=== PATIENT | male | born 1940 | race Caucasian/White ===

== ENCOUNTER → 2016-04-24 | Outpatient (CLI) | payer OTHER ==
[~2016-04-24] MED LIST: DOXA2TAB PO; HYDC25 PO; LISI20TA3 PO; MULT-506 PO; OXYC-57 PO; PROSTATE MED PO; SIMV20TA2 PO
[2016-04-24 09:37] LABS: BASO % 0.3 %; BASO ABS # 0.02 K/uL (0-0.2); COMPLETE YES; EOS % 4.1 %; HEMATOCRIT 41.7 % (42-52); IG% 0.2 %; LYMPH % 20.8 %; LYMPH ABS # 1.23 K/uL (1.2-3.4); MEAN CELL VOLUME 93.5 fL (80-100); MEAN CORPUSCULAR HEMOGLOBIN 31.6 pg (25-34); MEAN CORPUSCULAR HGB CONC 33.8 g/dl (32-36); MEAN PLATELET VOLUME 9.6 fL (7.4-10.4); MONO % 6.6 %; PLATELET COUNT 245 K/uL (130-400); RED BLOOD COUNT 4.46 M/uL (4.7-6.1)
[2016-04-24 10:21] LABS: BLOOD UREA NITROGEN 19 mg/dl (7-18); BUN/CREATININE RATIO 15.6 (10-20); CALCIUM 9.8 mg/dl (8.5-10.1); CARBON DIOXIDE 27 mmol/L (21-32); CHLORIDE 107 mmol/L (98-107); GLUCOSE 102 mg/dl (70-99); POTASSIUM 4.6 mmol/L (3.5-5.1); SODIUM 141 mmol/L (136-145)
[2016-04-24 10:26] LABS: CHOLESTEROL 161 mg/dl (0-200); CHOLESTEROL/HDL RATIO 3.8; FERRITIN 66.3 ng/ml (8.0-388.0); HDL CHOLESTEROL 42 mg/dl; LDL CHOLESTEROL CALCULATED 85 mg/dl; TRIGLYCERIDES 172 mg/dl (0-150); VERY LOW DENSITY LIPOPROT CALC 34 mg/dl
[2016-04-24 10:30] LABS: ESTIMATED AVERAGE GLUCOSE 123 mg/dl; HA1C FLAG Normal (Normal)
== END | disposition home or self-care (01) ==
LOC: C.LAB 08:55
PROVIDERS: ATTEND Internal Medicine Geriatric Medicine
DX: I10 Essential (primary) hypertension (principal); E78.5 Hyperlipidemia, unspecified; R73.9 Hyperglycemia, unspecified; Z86.39 Personal history of other endocrine, nutritional and metabolic disease; D64.9 Anemia, unspecified; C61 Malignant neoplasm of prostate

== ENCOUNTER → 2016-07-03 | Outpatient (CLI) | payer OTHER ==
[~2016-07-03] MED LIST changes: +DIPH30CA PO; +PSYL48.59 PO; +TAMS0.4C38 PO
--- NOTE | 2016-07-03 14:24 | DIAGNOSTIC IMAGING REPORT ---
BONE SCAN WHOLE BODY CLINICAL HISTORY: Prostate cancer. COMPARISON STUDY: Whole-body bone scan February 23, 2010. TECHNIQUE: 27.2 mCi of technetium 99m MDP was injected IV at 10:30 AM on July 03, 2016. Whole body imaging was performed in the anterior and posterior projections 3 hours following injection. FINDINGS: Expected soft tissue and uptake is present. There has been interval development of a small focus of marked radiotracer uptake within the left inferior pubic ramus. Uptake within the shoulders and sternoclavicular joints is degenerative. No additional suspicious foci are identified. IMPRESSION: Small focus of marked radiotracer uptake within the left inferior pubic ramus which is highly suggestive of skeletal metastatic disease given the clinical history. Electronically signed by: Dann Cruz M.D. 07/03/2016 2:22 PM Dictated Date/Time: 07/03/2016 2:16 PM
== END | disposition home or self-care (01) ==
LOC: C.NUCL 09:45
PROVIDERS: ATTEND Urology
DX: C61 Malignant neoplasm of prostate (principal)

== ENCOUNTER → 2016-07-13 | Outpatient (CLI) | payer OTHER ==
[2016-07-10 12:25] LABS: BLOOD UREA NITROGEN 22 mg/dl (7-18); BUN/CREATININE RATIO 20.2 (10-20)
[~2016-07-13] MED LIST changes: +GADAVIST IV PRN
--- NOTE | 2016-07-13 10:47 | DIAGNOSTIC IMAGING REPORT ---
MRI THE PELVIS WITHOUT A WITH GADOLINIUM CLINICAL HISTORY: Prostate carcinoma. Abnormal bone scan. COMPARISON STUDY: Nuclear medicine bone scan dated 07/03/2016 FINDINGS: The patient was imaged before and after the administration of 5.5 cc of intravenous Gadavist. Imaging was performed in sagittal coronal and axial planes. There are no areas of pathologic marrow replacement. The prostate is heterogeneous and mildly enlarged. There is colonic diverticulosis. There is no evidence of pathologic adenopathy. IMPRESSION: 1. No MRI evidence of pelvic skeletal metastasis 2. The etiology of the previously described abnormal bone scan is not known with certainty. The activity may have represented urinary contamination. Electronically signed by: Iftikhar Greer M.D. 07/13/2016 10:46 AM Dictated Date/Time: 07/13/2016 10:41 AM
== END | disposition home or self-care (01) ==
LOC: C.MRI 09:14
PROVIDERS: ATTEND Urology
DX: C61 Malignant neoplasm of prostate (principal); R93.8 Abnormal findings on diagnostic imaging of other specified body structures

== ENCOUNTER → 2016-09-01 | Outpatient (CLI) | payer OTHER ==
[~2016-09-01] MED LIST changes: -GADAVIST IV PRN; -HYDC25 PO; -OXYC-57 PO; -PROSTATE MED PO
== END | disposition home or self-care (01) ==
LOC: C.PATHSPEC 13:38
PROVIDERS: ATTEND Urology
DX: C61 Malignant neoplasm of prostate (principal)

== ENCOUNTER → 2016-09-20 | Outpatient (CLI) | payer OTHER ==
[~2016-09-20] MED LIST changes: -PSYL48.59 PO; -TAMS0.4C38 PO
[2016-09-20 13:10] VITALS: BP 102/49; PULSE 62; TEMP 36.7; O2SAT 96
--- NOTE | 2016-09-20 15:36 | Radiation Oncology Follow-Up ---
Radiation Oncology Follow-Up Date of Visit Sep 20, 2016. (Niels Bass M.D.) Radiation Completion Date no radiation had consult Jul 27 2016 (Niels Bass M.D.) Diagnosis (1) Cancer of prostate w/low recurrence risk (T1-2a, [place]<7 & PSA<10) Status: Acute Onset Date: 08/15/2009 Location: right lobe of the prostate Histology Subtype: adenocarcinoma Stage: ll Permanent Comment: Rising PSA, pretreatment PSA 5.39 Status post ultrasound-guided biopsies 02/14/2010 Adenocarcinoma the prostate [place] 3+3 Active surveillance Rising PSA to 14.400 Repeat biopsy 09/01/2016 Adenocarcinoma [place] 3+4 Last Edited By: Cesilia Escoto on Sep 20, 2016 16:20 (Cesilia Escoto, SOFÍA) History of Present Illness Mr. Metz is a soon-to-be 76-year-old male in August of this year who presented at age 69 with a increase in his prostate-specific antigen from 3.23 on 2009 to 5.39 on 11/19/2009. Because of this increase in prostate-specific antigen the patient was seen by Dr. Corcoran who discussed the option of ultrasound-guided biopsies. The patient ultimately agreed and on 02/14/2010 patient underwent the biopsies. Dr. Corcoran took 20 biopsies though the patient remembers 23. Of these biopsies however only 2 were positive for [place] grade 3+3 involving a small amount of disease. Case: [id number]. Based on this information it would appear that the patient had a very low risk prostate cancer. At age 77 was very appropriate to proceed with active surveillance. The patient did continue to get follow-up prostate-specific antigens though he did not get follow-up biopsies. His prostate-specific antigen very gradually increased and on 04/07/2014 prostate-specific antigen was 8.33. 10/08/1999 1510.7. 04/07/2015 9.67, 10/06/1999 1610.1 and 04/24/1999 1714.4. With this ultimate rising prostate-specific antigen the patient returned to see Dr. Rivera. On digital rectal exam Dr. Rivera felt his gland was 30 g in size and that the right lobe was larger and firmer than the left lobe. He discussed with the patient the recommendation of repeating biopsies. He also obtained a bone scan. This was performed on 07/03/2016. This showed a small focus of marked radiotracer uptake within the left inferior pubic ramus which is felt to be highly suggestive of skeletal metastatic disease given the clinical history. An MRI to rule this out was performed on July 13. This showed no MRI evidence of pelvic skeletal metastasis. The etiology of the abnormal bone scan was not certain but would be explained by urinary contamination. However there was ultimately no evidence of metastatic disease. (Cesilia Escoto PA-C) Interim History As recommended the patient underwent a repeat biopsy 09/01/2016. This revealed adenocarcinoma at the right base. This is a 3+4. 2 cores positive. These were 50 and 80% involved. 30% of the core was grade 4. The right mid showed adenocarcinoma 3+4. 2 cores positive. 5 and 45%. The percentage of 4 was 40% . With the new findings on repeat biopsy the patient was referred back to our office to discuss radiation therapy. He is doing well from urinary standpoint. His AUA score was 2. He completed expanded prostate cancer index composite for clinical practice and gave a score of 0 of 12 and urinary incontinence symptoms. He gave a score of 0 of 12 and urinary irritation symptoms. He gave a score of 0 of 12 in bowel symptoms. He gave a score of one of 12 and sexual symptoms. He gave a score of 0 of 12 in hormonal vitality symptoms. His total was 1 of 60. (Cesilia Escoto PA-C) Allergies Coded Allergies: No Known Allergies (Verified Allergy, NONE, 08/22/08) Home Medications Scheduled Doxazosin Mesylate (Cardura), 1 TAB PO HS Lisinopril (Prinivil), 20 MG PO DAILY Simvastatin (Zocor), 20 MG PO QPM Review of Systems Gastrointestinal: Symptoms: WNL Oral: Symptoms: No Problems Respiratory: Symptoms: WNL Urinary: Symptoms: WNL Comments: PSA 14.4 Skin: Symptoms: No Problems (Niels Bass M.D.) Physical Exam Vital Signs Date Time Temp Pulse Resp B/P (MAP) Pulse Ox O2 Delivery O2 Flow Rate FiO2 09/20/16 13:10 36.7 62 18 102/49 96 Pain: Patient Pain Scale: 0 - 10 Initial Pain Intensity: 0.0 (Derdel, Niels, M.D.) Fatigue: None General Appearance: no apparent distress Eyes: normal inspection, EOMI ENT: normal ENT inspection, hearing grossly normal Neck: no adenopathy, thyroid normal Respiratory/Chest: lungs clear, no respiratory distress, no accessory muscle use Cardiovascular: regular rate, rhythm, no gallop, no murmur Abdomen: non tender, soft, no organomegaly Extremities: no pedal edema Neurologic/Psychiatric: no motor/sensory deficits, alert, normal mood/affect Skin: warm/dry (Cesilia Escoto PA-C) Laboratory Studies Test 07/10/16 09:57 Blood Urea Nitrogen 22 mg/dl (7-18) Creatinine 1.10 mg/dl (0.60-1.40) Estimated GFR () 75.2 Estimated GFR (Non- 64.9 BUN/Creatinine Ratio 20.2 (10-20) (Niels Bass M.D.) Additional Studies [facility] SURGICAL PATHOLOGY REPORT Name ÓSCAR METZ Case: [id number] SURGICAL PATHOLOGY REPORT Page 2 of 3 [place] [address] Al Cummins M.D. [employer] PATHOLOGY REPORT SURGICAL PATHOLOGY REPORT Page 1 of 1 Name ÓSCAR METZ Age/Sex 75/M Location: [facility] MR# [id number] : 1940 /[facility] Physician: Davie Rivera M.D. Case: [id number] Received 09/01/16 Specimen Date 09/01/16 CLINICAL HISTORY C61 14.40 on 04/24/16 GROSS DESCRIPTION A. LEFT BASE X2 The specimen is received in a container labeled as left base with patient name Óscar Metz. The specimen consists of two cylindrical fragments of pink soft tissue which measure 1.6 and 2 cm in length and average 0.1 cm in diameter. The specimen is entirely submitted in a single cassette as A for levels. B. RIGHT BASE X2 The specimen is received in a container labeled as right base with patient name Óscar Metz. The specimen consists of two cylindrical fragments of pink soft tissue which measure 1.8 and 2 cm in length and average 0.1 cm in diameter. The specimen is entirely submitted in a single cassette as B for levels. C. LEFT MID X2 The specimen is received in a container labeled as left mid with patient name Óscar Metz. The specimen consists of four cylindrical fragments of pink soft tissue which range from 0.2 to 2 cm in length and average 0.1 cm in diameter. The specimen is entirely submitted in a single cassette as C for levels. D. RIGHT MID X2 The specimen is received in a container labeled as right mid with patient name Óscar Metz. The specimen consists of three cylindrical fragments of pink soft tissue which range from 0.6 to 1.8 cm in length and average 0.1 cm in diameter. The specimen is entirely submitted in a single cassette as D for levels. E. LEFT APEX X2 The specimen is received in a container labeled as left apex with patient name Óscar Metz. The specimen consists of two cylindrical fragments of pink soft tissue, each measuring 1.8 cm in length and averaging 0.1 cm in diameter. The specimen is entirely submitted in a single cassette as E for levels. F. RIGHT APEX X2 The specimen is received in a container labeled as right apex with patient name Óscar Metz. The specimen consists of three cylindrical fragments of pink soft tissue which range from 0.4 to 1.7 cm in length and average 0.1 cm in diameter. The specimen is entirely submitted in a single cassette as F for levels. SH/pi FINAL DIAGNOSIS A. PROSTATE, LEFT BASE, NEEDLE BIOPSIES: BENIGN PROSTATIC TISSUE. B. PROSTATE, RIGHT BASE, NEEDLE BIOPSIES: 1. PROSTATIC ADENOCARCINOMA, GRADE GROUP 2, THANG GRADE 7 (3 + 4) WITH GRADE 4 REPRESENTING 30% OF TUMOR. 2. TUMOR NOTED WITHIN TWO OF TWO CORES, MEASURING 8 AND 11 MM (50 AND 80% CORE LENGTH RESPECTIVELY). 3. NO PERINEURAL OR LYMPH-VASCULAR INVASION IDENTIFIED. C. PROSTATE, LEFT MID, NEEDLE BIOPSIES: BENIGN PROSTATIC TISSUE. D. PROSTATE, RIGHT MID, NEEDLE BIOPSIES: 1. PROSTATIC ADENOCARCINOMA, GRADE GROUP 2, THANG GRADE 7 (3 + 4) WITH GRADE 4 REPRESENTING 40% OF TUMOR. 2. TUMOR NOTED WITHIN TWO OF TWO CORES, MEASURING 1 AND 6 MM (5 AND 45% CORE LENGTH RESPECTIVELY). 3. NO PERINEURAL OR LYMPH-VASCULAR INVASION IDENTIFIED. E. PROSTATE, LEFT APEX, NEEDLE BIOPSIES: BENIGN PROSTATIC TISSUE. F. PROSTATE, RIGHT APEX, NEEDLE BIOPSIES: BENIGN PROSTATIC TISSUE. COMMENT: The case has been seen in intradepartmental consultation. (Niels Bass M.D.) Assessment & Plan Mr. Metz is a 76-year-old male who was initially diagnosed with a very low risk prostate cancer following biopsies on 02/14/2010 and presenting prostate- specific antigen of 5.39. At that time patient chose to proceed with active surveillance at the age of 69. The patient was followed with serial prostate- specific antigens. In August 2013 prostate-specific antigen had gone up slightly to 5.93. March 2014 prostate-specific antigen increased to 8.33. 10/07/2014 prostate-specific antigen was 10.7. March 2015 prostate-specific antigen was 9.67. 10/06/2015 prostate-specific antigen was 10.1 and on 04/24/2016 prostate- specific antigen had increased to 14.4. At that time narinder Rivera asked if I would see the patient again to discuss treatment options. I told the patient that it would be best to have additional information if we were to make appropriate decisions and discuss appropriate treatment options. I therefore suggested that the patient strongly consider a repeat biopsy as did Dr. Rivera. The patient ultimately agreed and on 2016 underwent ultrasound-guided biopsies. The patient's digital rectal exam at that time showed a firm right mid lateral gland. Patient went on to have 12 core biopsies taken. The biopsies from the left base, left mid, left apex and right apex were benign. 2 of 2 biopsies from the right base were positive for prostatic adenocarcinoma [place] grade 3+4. He [place] pattern 4 represented 30 % of the tumor and the tumor represented 50% and 80% of the core tissue samples respectfully. No perineural or lymphovascular invasion was identified. 2 of 2 biopsies in the right mid gland were positive for adenocarcinoma Th[place] grade 3 +4 with Thang pattern 4 represented 40% of the tumor volume and the 2 core biopsies involving 5% and 45% of the core tissue samples respectively. No perineural or lymphovascular invasion was seen. Case: [id number]. I reviewed with the patient his pathology findings. I told him that he now has what is considered an intermediate risk disease. I reviewed the NCCN Guidelines with him. Estimated survival as noted previously for a 76-year-old gentleman is on average 9 and three-quarter years. However given this patient' s excellent health he very well could live an additional 15 years. I told him that recommendations for low risk disease or to offer active surveillance only if you're going to live less than 10 years. For intermediate risk disease they generally recommend consideration of treatment if survival is over 8-10 years. Given his likely survival I thought it was reasonable to discuss treatment options with this patient. I met with the patient and his to discuss treatment options. I reviewed with him the Audra table data. This shows probability of organ confined disease of 32% and probability of extraprostatic extension of 50%. Probability of seminal vesicle involvement is 14% but lymph node involvement is only 40%. I told him that given the need to treat outside of the gland that we could treat with a prostate seed implant as boost followed by a course of external radiation. The patient indicated that he was predisposed against consideration of a prostate seed implant. I therefore told him that an alternative would be to treat him with a hypo-fractionated course of radiation following placement of gold fiducial markers seeds and SpaceOAR. I told him this this would consist of 28 fractions delivered over 5-1/2 weeks. I reviewed with him the potential risks and side effects including a discussion of both acute as well as chronic side effects. This included a discussion of potential increase and secondary malignancies of the bladder and rectum. The patient is scheduled to return to see Dr. Rivera on October 18 at 9:50 AM. I told him that we could easily wait until after his meeting with Dr. Rivera to give the patient time to think about treatment options area told him that it is an option to continue with close active surveillance if the patient wishes to avoid treatment of any kind. The patient indicated that at this time is strongly considering the treatment with IMRT and IGRT utilizing hypo- fractionation as discussed with him. No consent form was obtained at this time. We will await for his review with Dr. Rivera and will proceed according to his wishes. Thank you for allowing us to participate in the care of this patient. This chart was completed in part utilizing The [employer] Voice Recognition software. Attempts were made to minimize the grammatical errors, random word insertions, pronoun errors and incomplete sentences. Any formal questions or concerns about the content, text or information contained within the body of this dictation should be directly addressed to the provider for clarification. Omar Bass MD Department of Radiation Oncology [facility] Rani Andersen [facility] (Niels Bass M.D.) Total Time In Follow-Up I spent 20 minutes in discussion of treatment options with this patient and 10 minutes reviewing his chart in preparation of this document. DONNY (Niels Bass M.D.) I spent 20 was speaking to the patient performing examination. I spent 15 minutes reviewing information and completing this note. OLEGARIO (Cesilia Escoto PA-C) Copy To Davie Rivera M.D.; Tashi Ferrell M.D.
== END | disposition home or self-care (01) ==
LOC: C.ONC 12:46
PROVIDERS: ATTEND Physician Assistant Medical
DX: Z08 Encounter for follow-up examination after completed treatment for malignant neoplasm (principal); Z92.3 Personal history of irradiation; Z85.46 Personal history of malignant neoplasm of prostate

== ENCOUNTER → 2016-11-14 | Outpatient (CLI) | payer OTHER ==
--- NOTE | 2016-11-14 10:38 | DIAGNOSTIC IMAGING REPORT ---
MRI OF THE PELVIS WITHOUT IV CONTRAST CLINICAL HISTORY: Prostate cancer. Brachytherapy seed implantation. Space oar study. COMPARISON STUDY: MRI of the pelvis dated 07/13/2016. TECHNIQUE: MRI of the pelvis is performed utilizing T1 and T2-weighted sequences in the axial and sagittal planes. IV contrast was not administered for this examination. Note that this does not constitute a dedicated prostate MRI. FINDINGS: The prostate gland is enlarged and heterogeneous, measuring 4.5 cm in transverse diameter. There is median lobe hypertrophy. Space oar material has been placed between the prostate and the rectum. There is approximately 1.5 cm of separation between the prostate and the rectum. The bladder wall is thickened and trabeculated suggesting chronic outlet obstruction. Advanced diverticulosis is noted in the sigmoid colon. There is no evidence of acute diverticulitis. No pelvic sidewall or inguinal lymphadenopathy is seen. The bony pelvis appears intact as visualized. Marrow signal intensity is heterogeneous. No marrow replacement process is identified. There is no free fluid in the pelvis. IMPRESSION: 1. Space oar material has been placed between the prostate and the rectum with approximately 1.5 cm of separation. 2. The prostate gland is enlarged and heterogeneous and there is evidence of chronic bladder outlet obstruction. 3. Advanced sigmoid diverticulosis. Dictated: 11/14/2016 10:29 AM Transcribed: 11/14/2016 10:37 AM Chele Electronically signed by: Fidencio Fang M.D. 11/14/2016 10:47 AM Dictated Date/Time: 11/14/2016 10:29 AM
== END | disposition home or self-care (01) ==
LOC: C.MRI 09:49
PROVIDERS: ATTEND Physician Assistant Medical
DX: C61 Malignant neoplasm of prostate (principal); K57.30 Diverticulosis of large intestine without perforation or abscess without bleeding

== ENCOUNTER → 2016-11-24 | Outpatient (CLI) | payer OTHER ==
[~2016-11-24] MED LIST changes: +TAMS0.4C38 PO
[2016-11-24 09:47] LABS: BLOOD UREA NITROGEN 17 mg/dl (7-18); BUN/CREATININE RATIO 13.9 (10-20); CALCIUM 10.5 mg/dl (8.5-10.1); CARBON DIOXIDE 29 mmol/L (21-32); CHLORIDE 106 mmol/L (98-107); GLUCOSE 111 mg/dl (70-99); POTASSIUM 4.7 mmol/L (3.5-5.1); SODIUM 138 mmol/L (136-145)
== END | disposition home or self-care (01) ==
LOC: C.LAB 08:16
PROVIDERS: ATTEND Internal Medicine Geriatric Medicine
DX: R73.9 Hyperglycemia, unspecified (principal); C61 Malignant neoplasm of prostate; D64.9 Anemia, unspecified

== ENCOUNTER → 2016-12-18 | Outpatient (CLI) | payer OTHER ==
[~2016-12-18] MED LIST changes: -TAMS0.4C38 PO
[2016-12-18 12:47] LABS: ALT/SGPT 30 U/L (12-78); BLOOD UREA NITROGEN 15 mg/dl (7-18); BUN/CREATININE RATIO 13.3 (10-20); CALCIUM 9.5 mg/dl (8.5-10.1); CARBON DIOXIDE 27 mmol/L (21-32); CHLORIDE 104 mmol/L (98-107); GLUCOSE 97 mg/dl (70-99); POTASSIUM 4.3 mmol/L (3.5-5.1); SODIUM 136 mmol/L (136-145)
[2016-12-18 12:58] LABS: ALB/GLOB RATIO 1.1 (0.9-2); ALKALINE PHOSPHATASE 100 U/L (45-117); AST/SGOT 25 U/L (15-37)
== END | disposition home or self-care (01) ==
LOC: C.LAB 11:03
PROVIDERS: ATTEND Internal Medicine Geriatric Medicine
DX: E83.52 Hypercalcemia (principal); I10 Essential (primary) hypertension; R73.9 Hyperglycemia, unspecified

== ENCOUNTER → 2017-01-18 | Outpatient (CLI) | payer OTHER ==
[~2017-01-18] MED LIST changes: +PSYL48.59 PO; +TAMS0.4C38 PO
== END | disposition home or self-care (01) ==
LOC: C.LABSPEC 17:12
PROVIDERS: ATTEND Urology
DX: N39.0 Urinary tract infection, site not specified (principal)

== ENCOUNTER → 2017-02-09 | Outpatient (CLI) | payer OTHER ==
[~2017-02-09] MED LIST changes: +CEPH500C PO
[2017-02-09 08:29] VITALS: BP 137/66; PULSE 73; TEMP 36.3; O2SAT 98
--- NOTE | 2017-02-09 09:24 | Radiation Oncology Follow-Up ---
Radiation Oncology Follow-Up Date of Visit Feb 09, 2017. Reason For Visit One-month follow-up and cancer survivorship care plan Radiation Completion Date 01/08/17 Diagnosis (1) Cancer of prostate w/low recurrence risk (T1-2a, Erin<7 & PSA<10) Status: Resolved Onset Date: 08/15/2009 Location: right lobe of the prostate Histology Subtype: adenocarcinoma Stage: ll Permanent Comment: Rising PSA, pretreatment PSA 5.39 Status post ultrasound-guided biopsies 02/14/2010 Adenocarcinoma the prostate Elbert 3+3 Active surveillance Rising PSA to 14.400 Repeat biopsy 09/01/2016 Adenocarcinoma Erin 3+4 No hormone suppression required Status post placement of gold fiducial markers and Space OAR 10/31/2016 Status post completion of radiation therapy 01/08/2017 utilizing VMAT hypo- fractionation. He received 7000 cGy Last Edited By: Cesilia Escoto on Jan 13:36 History of Present Illness Mr. Metz presented at age 69 with a increase in his prostate specific antigen from 3.23 on 10/03/2009 to 5.39 on 11/19/2009. Because of this increase in prostate-specific antigen the patient was seen by Dr. Corcoran who discussed the option of ultrasound-guided biopsies. The patient ultimately agreed and on 02/14/2010 patient underwent the biopsies. Dr. Corcoran took 20 biopsies though the patient remembers 23. Of these biopsies however only 2 were positive for Elbert grade 3+3 involving a small amount of disease. Case: [id number]. Based on this information it would appear that the patient had a very low risk prostate cancer. At age 77 was very appropriate to proceed with active surveillance. The patient did continue to get follow-up prostate-specific antigens though he did not get follow-up biopsies. His prostatespecific antigen very gradually increased and on 04/07/2014 prostate-specific antigen was 8.33. 10/08/1999 1510.7. 9.67, 10/06/1999 1610.1 and 04/24/1999 1714.4. With this ultimate rising prostate-specific antigen the patient returned to see Dr. Rivera. On digital rectal exam Dr. Rivera felt his gland was 30 g in size and that the right lobe was larger and firmer than the left lobe. He discussed with the patient the recommendation of repeating biopsies. He also obtained a bone scan. This was performed on 07/03/2016. This showed a small focus of marked radiotracer uptake within the left inferior pubic ramus which is felt to be highly suggestive of skeletal metastatic disease given the clinical history. An MRI to rule this out was performed on July 13. This showed no MRI evidence of pelvic skeletal metastasis. The etiology of the abnormal bone scan was not certain but would be explained by urinary contamination. However there was ultimately no evidence of metastatic disease. Dr. Rivera asked if we would see his patient to discuss the treatment options with the patient. All options were reviewed with the patient. His ultimate decision was to have radiation therapy. Decision was to treat with a hypo-fractionation. He returned to our office and had placement of gold fiducial markers and Space OAR. He completed radiation therapy 01/08/2017. He received 7000 cGy Utilizing VMAT. Interim History Shortly after completing his radiation therapy he developed acute urinary retention. He was in the vicinity of Dr. Rivera's office and stopped in. A catheter was placed. The amount of urine that was removed is not known to the patient but he describes a large amount. There going to leave the catheter out that he had incontinence. Decision was to leave the catheter in place. This stayed in for 5 days. He return to Dr. Rivera and the catheter was removed. He did not have any further difficulty further episodes of retention after removal of the catheter. While on treatment he was started on Flomax. At the end of treatment he felt he was doing well and he stopped the medication on his own. He is not on any medication to help with urination. He occasionally has a feeling of urgency. He is otherwise doing very well. He given AUA score of 5. He completed and expanded prostate cancer index composite for clinical practice and gave a score of 0 of 12 urinary incontinence symptoms. He gave a score 0 of 12 and urinary irritation symptoms. He gave a score of 0 of 12 and bowel symptoms. He gave a score of 2 of 12 in sexual symptoms. He gave a score 0 12 and hormonal vitality symptoms. His total was 2 of 60. Allergies Coded Allergies: No Known Allergies (Verified Allergy, NONE, 08/22/08) Home Medications Scheduled Doxazosin Mesylate (Cardura), 1 TAB PO HS Lisinopril (Prinivil), 20 MG PO DAILY Multivitamin (Multivitamin), 1 TAB PO DAILY Psyllium (Metamucil), 1 TSP PO DAILY Simvastatin (Zocor), 20 MG PO QPM Tamsulosin Hcl (Flomax), 1 CAP PO DAILY Scheduled PRN Diphenhydramine Hcl (Allergy Medication), 1 CAP PO DAILY PRN for allergy flare Review of Systems Gastrointestinal: Symptoms: WNL Oral: Symptoms: No Problems Respiratory: Symptoms: WNL Urinary: Symptoms: WNL Comments: a couple weeks ago I had a catheter put in for 5 days unable to void, af Skin: Symptoms: No Problems Physical Exam Vital Signs Date Time Temp Pulse Resp B/P (MAP) Pulse Ox O2 Delivery O2 Flow Rate FiO2 02/09/17 08:29 36.3 73 20 137/66 98 Fatigue: None General Appearance: no apparent distress Eyes: normal inspection, EOMI ENT: normal ENT inspection, hearing grossly normal Respiratory/Chest: lungs clear, no respiratory distress, no accessory muscle use Cardiovascular: regular rate, rhythm, no gallop, no murmur Abdomen: non tender, soft, no organomegaly Extremities: no pedal edema Neurologic/Psychiatric: no motor/sensory deficits, alert, normal mood/affect Skin: warm/dry Pain Management Pain Location: None Patient Preferred Pain Scale: 0 - 10 Pain Rating (0-10): 0 Pain Management Plan The patient is not having any pain and therefore requires no pain management. Laboratory Studies Test 11/24/16 08:21 12/11/16 10:10 12/18/16 11:16 02/09/17 08:58 Sodium Level 138 mmol/L (136-145) 136 mmol/L (136-145) Potassium Level 4.7 mmol/L (3.5-5.1) 4.3 mmol/L (3.5-5.1) Chloride Level 106 mmol/L (98-107) 104 mmol/L (98-107) Carbon Dioxide Level 29 mmol/L (21-32) 27 mmol/L (21-32) Anion Gap 3.0 mmol/L (3-11) 5.0 mmol/L (3-11) Blood Urea Nitrogen 17 mg/dl (7-18) 15 mg/dl (7-18) Creatinine 1.20 mg/dl (0.60-1.40) 1.10 mg/dl (0.60-1.40) Estimated GFR () 67.2 74.7 Estimated GFR (Non- 58.0 64.4 BUN/Creatinine Ratio 13.9 (10-20) 13.3 (10-20) Random Glucose 111 mg/dl (70-99) 97 mg/dl (70-99) Calcium Level 10.5 mg/dl (8.5-10.1) 9.5 mg/dl (8.5-10.1) Prostate Specific Antigen 15.900 ng/ml (0.000-4.000) Pending Urine Color YELLOW Urine Appearance CLEAR (CLEAR) Urine pH 8.0 (4.5-7.5) Urine Specific [place] 1.009 (1.000-1.030) Urine Protein NEG (NEG) Urine Glucose (UA) NEG (NEG) Urine Ketones NEG (NEG) Urine Occult Blood NEG (NEG) Urine Nitrite NEG (NEG) Urine Bilirubin NEG (NEG) Urine Urobilinogen NEG (NEG) Urine Leukocyte Esterase NEG (NEG) Total Bilirubin 0.4 mg/dl (0.2-1) Aspartate Amino Transferase (AST) 25 U/L (15-37) Alanine Aminotransferase (ALT) 30 U/L (12-78) Alkaline Phosphatase 100 U/L (45-117) Total Protein 7.0 gm/dl (6.4-8.2) Albumin 3.7 gm/dl (3.4-5.0) Globulin 3.3 gm/dl (2.5-4.0) Albumin/Globulin Ratio 1.1 (0.9-2) Thyroid Stimulating Hormone (TSH) 3.150 uIu/ml (0.300-4.500) Parathyroid Hormone (Intact) 72.9 pg/mL (11.1-79.5) Assessment & Plan Plan: The patient will be notified as to results of his PSA. He'll continue regular follow-up with Dr. Rivera and Dr. Ferrell. Should he develop difficulty with urination the Flomax could be reinstituted. He feels he is doing quite well and is not in need of any medicines to help with urination. Today we completed a cancer survivorship care plan. A copy of the document was given a the patient. He was given a survivorship booklet. We asked him to return to our office in 6 months. He'll be following up with Dr. Rivera and having a recheck PSA prior to that visit. Total Time In Follow-Up I spent 20 minutes speaking to the patient performing examination. I spent 20 minutes reviewing information, preparing the survivorship document, and completing this note. Copy To Davie Rivera M.D.; Tashi Ferrell M.D.
== END | disposition home or self-care (01) ==
LOC: C.ONC 08:14
PROVIDERS: ATTEND Physician Assistant Medical
DX: Z08 Encounter for follow-up examination after completed treatment for malignant neoplasm (principal); Z92.3 Personal history of irradiation; Z85.46 Personal history of malignant neoplasm of prostate

== ENCOUNTER → 2017-05-23 | Outpatient (CLI) | payer OTHER ==
[~2017-05-23] MED LIST changes: -CEPH500C PO; -DIPH30CA PO; -MULT-506 PO; -PSYL48.59 PO; -TAMS0.4C38 PO
== END | disposition home or self-care (01) ==
LOC: C.LAB 08:45
PROVIDERS: ATTEND Urology
DX: C61 Malignant neoplasm of prostate (principal)

== ENCOUNTER 2024-02-13 09:23 | Inpatient (IN) ==
[2024-02-13 10:18] LABS: Basophils # (auto) 0.02 K/uL (0.00-0.20); Basophils % (auto) 0.4 %; Eosinophils # (auto) 0.13 K/uL (0.00-0.50); Eosinophils % (auto) 2.3 %; Hematocrit (blood only) 40.5 % (42.0-52.0); Immature Granulocytes # (auto) 0.04 K/uL (0.01-0.20); Immature Granulocytes % (auto) 0.7 %; Lymphocytes # (auto) 0.83 K/uL (1.20-3.40); Lymphocytes % (auto) 14.9 %; Mean Corpuscular Hgb Conc 32.1 g/dL (32.0-36.0); Mean Corpuscular Volume 93.3 fL (80.0-100.0); Mean Platelet Volume 9.4 fL (9.4-12.4); Monocytes # (auto) 0.68 K/uL (0.11-0.59); Monocytes % (auto) 12.2 %; Neutrophils # (auto) 3.87 K/uL (1.40-6.50); Neutrophils % (auto) 69.5 %; Platelet Count 253 K/uL (130-400); RDW Standard Deviation 48.4 fL (36.4-46.3); Red Blood Count 4.34 M/uL (4.70-6.10); White Blood Count 5.57 K/ul (4.8-10.8)
--- NOTE | 2024-02-13 10:29 | XRay Report ---
XR chest 1V portable CLINICAL HISTORY: weakness COMPARISON STUDY: No previous studies for comparison. FINDINGS: Lung volumes are normal. Lungs are clear. There is no pneumothorax or pleural effusion. . M ild cardiomegaly is unchanged. Mediastinal contours are normal. There is no evidence for pulmonary ed gladis. Clustered calcifications within the right midlung are unchanged. IMPRESSION: No acute cardiopulmonary findings. No change in appearance of the chest. ACT 112: Negative or not required by law. Electronically signed by: Dann Cruz M.D. 02/13/2024 10:28 AM
[2024-02-13 10:40] LABS: Albumin Globulin Ratio 1.3 (0.9-2); Albumin Level 4.2 gm/dl (3.4-5.0); BUN Creatinine Ratio 20.3 (10-20); Bilirubin,Total 0.4 mg/dl (0.2-1.0); Calcium 10.1 mg/dl (8.6-10.3); Creatinine Clr Calc Pharmacy 29.1 ml/min; Globulin 3.2 gm/dl (2.5-4.0); Magnesium 2.1 mg/dl (1.7-2.4); Potassium 4.1 mmol/L (3.5-5.1); Total Protein 7.4 gm/dl (6.0-8.3)
[2024-02-13 10:44] LABS: Troponin I High Sensitivity 12.9 pg/ml (0-20)
--- NOTE | 2024-02-13 11:02 | Emergency Department Note ---
Impression & Plan COVID-19, COVID, Weakness ED Provider Note NAME: ÓSCAR LUIS AGE: 83 SEX: M : 1940 ARRIVES VIA: Ambulance INFORMANT: Patient, ED PROVIDER(S): Dameon Goode MD CHIEF COMPLAINT: Weakness, confusion HPI: This is an 83-year-old male with history of dementia presenting for weakness. Patient lives with his and is currently companied by his daughter and granddaughter. Patient has been more confused recently, sleeping on amount as per family. He has had a slight fever at home. Otherwise they note that he is very weak, unable to stand on his own. He fell out of bed previously and was assisted back into bed by his . Could barely lift him to the bed. They are concerned that he may need placement. ROS: See above HPI for pertinent positives & negatives. A total of 10 systems reviewed and were otherwise negative. PAST MEDICAL HISTORY: See Below PAST SURGICAL HISTORY: See Below FAMILY HISTORY: See Below SOCIAL HISTORY: See Below HOME MEDICATIONS: See Below ALLERGIES: See Below VITALS: See Below PHYSICAL EXAMINATION: General: resting comfortably in no acute distress Head: Normocephalic and atraumatic Eyes: Normal inspection, extraocular muscles intact Ear, nose, throat: Normal external exam Neck: Normal range of motion Respiratory: lungs clear to auscultation bilaterally Cardiovascular: Regular rate/rhythm, no murmur GI: soft, nontender, no guarding or rebound Extremities: nontender, moves all extremities Neuro: The patient awake and alert, appropriately conversive, no focal deficits, symmetric faces Skin: Warm, dry, and intact MEDICAL DECISION MAKING: This is an 83-year-old male presenting for weakness. Will do screening workup to look for UTI, pneumonia, URI, anemia. Patient will likely require admission/placement at this time based on family's inability to normal care for him at this time with his increasing needs. -Bloodwork is reviewed showing no significant leukocytosis, anemia, electrolyte or creatinine abnormality. -UA currently negative for UTI -Patient is positive for COVID-19 at this time, likely explains current symptoms -Chest Xray independently interpreted by me showing no pneumothorax, focal opacity, or pleural effusions. Differential diagnosis: COVID-19, UTI, upper resp infection, pneumonia, anemia Independent History obtained from: Daughter, Diagnostics interpreted by me: ECG: ECG independently interpreted by me with normal sinus rhythm, rate of 67, normal axis, normal GA, normal QRS, normal QTc, no ST segment elevations consistent with STEMI criteria Cardiac Monitoring: An order was placed for continuous cardiac monitoring. The monitor shows a rate of [70 with sinus rhythm. Past Med/Surg History Problem List (Updated 02/13/24 @ 18:02 by Dameon Goode MD) Weakness (Acute) COVID (Acute) COVID-19 (Acute) Fatigue COVID-19 Ambulatory dysfunction Hypertension (Chronic) Dementia Dementia with behavioral disturbance Pre-diabetes CKD (chronic kidney disease) stage 3, GFR 30-59 ml/min Subclinical hypothyroidism B12 deficiency Cancer of prostate w/low recurrence risk (T1-2a, Shawnee<7 & PSA<10) (08/15/09) "Rising PSA, pretreatment PSA 5.39 Status post ultrasound-guided biopsies 02/14/2010 Adenocarcinoma the prostate Shawnee 3+3 Active surveillance Rising PSA to 14.400 Repeat biopsy 09/01/2016 Adenocarcinoma Erin 3+4 No hormone suppression required Status post placement of gold fiducial markers and Space OAR 10/31/2016 Status post completion of radiation therapy 01/08/2017 utilizing VMAT hypo- fractionation. He received 7000 cGy" On 09/20/16 16:20 Cesilia Escoto wrote "Rising PSA, pretreatment PSA 5.39 Status post ultrasound-guided biopsies 02/14/2010 Adenocarcinoma the prostate Erin 3+3 Active surveillance Rising PSA to 14.400 Repeat biopsy 09/01/2016 Adenocarcinoma Erin 3+4 " On 07/27/16 09:55 Omar Bass wrote "He presented in 2009 with a prostate-specific antigen of 5.39. He underwent ultrasound-guided biopsies. 20 biopsies were taken with only 2 positive for Shawnee grade 3+3 with minute amounts. Patient therefore had a very low risk prostate cancer. At age 69 his decision was made to proceed with active surveillance. The patient's prostate-specific antigen has been gradually increasing up to 10 and his most recent prostate-specific antigen was 14.4." Urinary retention with incomplete bladder emptying (Acute) Medical History (Updated 02/13/24 @ 18:02 by Dameon Goode MD) History of tobacco use disorder Skin lesion of right ear Seizure-like activity Adrenal nodule Anemia Dyslipidemia Hypercalcemia Cardiac murmur Surgical History History of appendectomy Family History Father Hypertension Cardiac disorder Myocardial infarction Denies family history of Ovarian cancer Prostate cancer Breast cancer Lung cancer Colorectal cancer Cancer Social History Smoking Status: Former smoker Tobacco Type: Cigarettes Age Started Using Tobacco: 15; Age Quit Using Tobacco: 82; packs per day: 0.25; Second Hand Exposure: No; Do You Dip or Chew Tobacco: No; Tobacco Cessation Education Requested by Patient: No Hx Alcohol Use: No Hx Substance Use: No Preferred Language: Croatian Communication Ability: Effective Visual Impairment: Diminished Hearing Ability: Normal Circus Rider Required: No Beliefs That Will Affect Care: None marital status: Current Living Situation: Spouse current occupational status: retired How many Children do You have: 3 Other Information That Helps Us Care for You: No Feels Safe at Home: Yes Safety Concerns: Feels Safe At This Time Childhood Exposure to Second-Hand Smoke: Yes Diet: regular caffeine: Yes Dental Care, Regularly: No Physical Activity Frequency: 3-4 Times per Week Physical Activity Frequency Comment: walk Seatbelt Use: always Sunscreen Use: No Allergies Allergies Allergy/AdvReac Type Severity Reaction Status Date / Time No Known Drug Allergies Allergy Verified 10/10/23 11:10 Home Meds Home Medications Medication Instructions Recorded Confirmed multivitamin 1 tab PO QAM 01/05/19 02/13/24 cyanocobalamin (vitamin B-12) 2,500 mcg PO Q OTHER DAY 08/31/22 02/13/24 2,500 mcg tablet amlodipine 5 mg tablet 5 mg PO QAM 02/13/24 02/13/24 donepezil 10 mg tablet 10 mg PO PM 02/13/24 02/13/24 lisinopril 40 mg tablet 40 mg PO QAM hypertension 02/13/24 02/13/24 paroxetine HCl 20 mg tablet 20 mg PO QAM 02/13/24 02/13/24 Previous Rx's Medication Instructions Recorded alprazolam 0.5 mg tablet (Xanax) 0.5 mg PO DAILY PRN anxiety #60 03/08/23 tabs cholecalciferol (vitamin D3) 1,250 50,000 unit PO .qweekly #14 tabs 03/08/23 mcg (50,000 unit) tablet memantine 10 mg tablet 10 mg PO BID 90 days #180 tabs 09/03/23 Results & Data (ED) Vital Signs Vital Signs - 24 hr 02/13/24 09:28 02/13/24 09:28 02/13/24 09:28 Temperature 37.1 C 37.1 C Temperature Source Oral Oral Pulse Rate 68 Pulse Rate [Apical] 66 Pulse Rhythm Regular Pulse Rhythm [Apical] Regular Pulse Strength Normal Pulse Strength [Apical] Normal Respiratory Rate 16 16 Respiratory Effort / Characteristics Non-Labored Non-Labored Respiratory Depth Normal Normal Respiratory Pattern Regular Regular Blood Pressure 139/78 Blood Pressure [Right Arm] 139/78 Blood Pressure Mean 98 Blood Pressure Mean [Right Arm] 98 Blood Pressure Position Lying Blood Pressure Position [Right Arm] Lying Pulse Oximetry 94 92 Oxygen Delivery Method Room Air Room Air Room Air Sepsis Recent Fever Within 48 Hours No Sepsis New/Unexplained Change in Mental Status N/A Sepsis Action Taken by Nursing No Action Required 02/13/24 09:34 02/13/24 10:03 02/13/24 10:28 Temperature Temperature Source Pulse Rate 66 66 Pulse Rate [Apical] 68 Pulse Rhythm Regular Pulse Rhythm [Apical] Regular Pulse Strength Pulse Strength [Apical] Normal Respiratory Rate 16 16 Respiratory Effort / Characteristics Non-Labored Respiratory Depth Normal Respiratory Pattern Regular Blood Pressure Blood Pressure [Right Arm] 152/73 H Blood Pressure Mean Blood Pressure Mean [Right Arm] 99 Blood Pressure Position Blood Pressure Position [Right Arm] Lying Pulse Oximetry 92 92 Oxygen Delivery Method Room Air Room Air Sepsis Recent Fever Within 48 Hours Sepsis New/Unexplained Change in Mental Status Sepsis Action Taken by Nursing 02/13/24 11:49 02/13/24 13:23 02/13/24 13:43 Temperature Temperature Source Pulse Rate 69 Pulse Rate [Apical] 66 71 Pulse Rhythm Pulse Rhythm [Apical] Regular Regular Pulse Strength Pulse Strength [Apical] Normal Normal Respiratory Rate 16 16 Respiratory Effort / Characteristics Non-Labored Non-Labored Respiratory Depth Normal Normal Respiratory Pattern Regular Regular Blood Pressure Blood Pressure [Right Arm] 154/91 H 149/90 H Blood Pressure Mean Blood Pressure Mean [Right Arm] 112 109 Blood Pressure Position Blood Pressure Position [Right Arm] Lying Lying Pulse Oximetry 98 93 Oxygen Delivery Method Room Air Room Air Sepsis Recent Fever Within 48 Hours Sepsis New/Unexplained Change in Mental Status Sepsis Action Taken by Nursing 02/13/24 14:23 02/13/24 14:24 02/13/24 16:00 Temperature Temperature Source Pulse Rate 70 Pulse Rate [Apical] 68 72 Pulse Rhythm Pulse Rhythm [Apical] Regular Pulse Strength Pulse Strength [Apical] Normal Respiratory Rate 16 20 26 H Respiratory Effort / Characteristics Non-Labored Non-Labored Respiratory Depth Normal Normal Respiratory Pattern Regular Blood Pressure 158/97 H Blood Pressure [Right Arm] 170/127 H Blood Pressure Mean 124 Blood Pressure Mean [Right Arm] 141 Blood Pressure Position Blood Pressure Position [Right Arm] Lying Lying Pulse Oximetry 98 92 94 Oxygen Delivery Method Room Air Room Air Sepsis Recent Fever Within 48 Hours Sepsis New/Unexplained Change in Mental Status Sepsis Action Taken by Nursing Laboratory Data 02/13/24 09:58 02/13/24 09:58 Lab Results 02/13/24 02/13/24 02/13/24 Range/Units 09:58 11:42 Unknown WBC 5.57 (4.8-10.8) K/ul RBC 4.34 L (4.70-6.10) M/uL Hgb 13.0 L (14.0-18.0) g/dl Hct 40.5 L (42.0-52.0) % MCV 93.3 (80.0-100.0) fL MCH 30.0 (25.0-34.0) pg MCHC 32.1 (32.0-36.0) g/dL RDW Std Deviation 48.4 H (36.4-46.3) fL RDW Coeff of Radha 14.0 (11.5-14.5) % Plt Count 253 (130-400) K/uL MPV 9.4 (9.4-12.4) fL Immature Gran % (Auto) 0.7 % Neut % (Auto) 69.5 % Lymph % (Auto) 14.9 % [place] % (Auto) 12.2 % Eos % (Auto) 2.3 % Baso % (Auto) 0.4 % Neut # (Auto) 3.87 (1.40-6.50) K/uL Lymph # (Auto) 0.83 L (1.20-3.40) K/uL [place] # (Auto) 0.68 H (0.11-0.59) K/uL Eos # (Auto) 0.13 (0.00-0.50) K/uL Baso # (Auto) 0.02 (0.00-0.20) K/uL Immature Gran # (Auto) 0.04 (0.01-0.20) K/uL Sodium 135 L (136-145) mmol/L Potassium 4.1 (3.5-5.1) mmol/L Chloride 102 (98-107) mmol/L Carbon Dioxide 26 (21-32) mmol/L Anion Gap 7 (3-11) BUN 32 H (6-23) mg/dl Creatinine 1.58 H (0.6-1.4) mg/dl Est Cr Clr Drug Dosing 29.1 ml/min eGFR 42.86 BUN/Creatinine Ratio 20.3 H (10-20) Glucose 180 H (70-99(Fasting)) mg/dl Calcium 10.1 (8.6-10.3) mg/dl Magnesium 2.1 (1.7-2.4) mg/dl Total Bilirubin 0.4 (0.2-1.0) mg/dl AST 26 (13-39) U/L ALT 22 (7-52) U/L Alkaline Phosphatase 100 (34-104) U/L Troponin I High Sens 12.9 (0-20) pg/ml Total Protein 7.4 (6.0-8.3) gm/dl Albumin 4.2 (3.4-5.0) gm/dl Globulin 3.2 (2.5-4.0) gm/dl Albumin/Globulin Ratio 1.3 (0.9-2) Urine Color Yellow Urine Appearance Clear (Clear) Urine pH 5.0 (4.5-7.5) Ur Specific [place] 1.023 (1.000-1.030) Urine Protein 1+ H (Negative) Urine Glucose (UA) Negative (Negative) Urine Ketones Negative (Negative) Urine Blood Negative (Negative) Urine Nitrite Negative (Negative) Urine Bilirubin Negative (Negative) Urine Urobilinogen Negative (Negative) Ur Leukocyte Esterase Negative (Negative) Urine WBC (Auto) 0-5 (0-5) /hpf Urine RBC (Auto) 0-2 (0-2) /hpf U Hyaline Cast (Auto) 0-2 (0-2) /lpf U Epithel Cells (Auto) 0-2 (0-2) /hpf Urine Bacteria (Auto) None Seen (None Seen) Adenovirus (PCR) Not Detected (NotDetected) B. pertussis DNA (PCR) Not Detected (NotDetected) B.parapertussis DNA PCR Not Detected (NotDetected) C. pneumoniae DNA (PCR) Not Detected (NotDetected) Coronavirus OC43 (PCR) Not Detected (NotDetected) Coronavirus HKU1 (PCR) Not Detected (NotDetected) Coronavirus 229E (PCR) Not Detected (NotDetected) SARS-CoV-2 (PCR) DETECTED A (NotDetected) Coronavirus NL63 (PCR) Not Detected (NotDetected) Human Metapneumovir PCR Not Detected (NotDetected) Influenza Type A (PCR) Not Detected (NotDetected) Influenza Type B (PCR) Not Detected (NotDetected) M. pneumoniae (PCR) Not Detected (NotDetected) Parainfluenza 1 (PCR) Not Detected (NotDetected) Parainfluenza 2 (PCR) Not Detected (NotDetected) Parainfluenza 3 (PCR) Not Detected (NotDetected) Parainfluenza 4 (PCR) Not Detected (NotDetected) RSV (PCR) Not Detected (NotDetected) Entero/Rhino (PCR) Not Detected (NotDetected) Imaging Data Radiologist's Impression: Chest X-Ray 02/13/24 09:42 XR chest 1V portable CLINICAL HISTORY: weakness COMPARISON STUDY: No previous studies for comparison. FINDINGS: Lung volumes are normal. Lungs are clear. There is no pneumothorax or pleural effusion. . Mild cardiomegaly is unchanged. Mediastinal contours are normal. There is no evidence for pulmonary edema. Clustered calcifications within the right midlung are unchanged. IMPRESSION: No acute cardiopulmonary findings. No change in appearance of the chest. ACT 112: Negative or not required by law. Electronically signed by: Dann Cruz M.D. 02/13/2024 10:28 AM Discharge Plan Visit Data Chief Complaint: Weakness Stated Complaint: WEAKNESS ED Provider: Dameon Goode Discharge Problem: COVID-19, COVID, Weakness Forms Stand Alone Forms: [facility] [place] Prescriptions Prescriptions: No Action multivitamin tablet 1 tab PO QAM cyanocobalamin (vitamin B-12) 2,500 mcg tablet 2,500 mcg PO Q OTHER DAY memantine 10 mg tablet 10 mg PO BID 90 Days Qty: 180 3RF Rx Instructions: Take 10 mg (1 tab) twice a day cholecalciferol (vitamin D3) 1,250 mcg (50,000 unit) tablet 50,000 unit PO .qweekly Qty: 14 4RF alprazolam [Xanax] 0.5 mg tablet 0.5 mg PO DAILY PRN (Reason: anxiety) Qty: 60 3RF donepezil 10 mg tablet 10 mg PO PM amlodipine 5 mg tablet 5 mg PO QAM paroxetine HCl 20 mg tablet 20 mg PO QAM lisinopril 40 mg tablet 40 mg PO QAM Referrals Referrals: Flynn Collier DO [Primary Care Provider] -
[2024-02-13 12:18] LABS: Adenovirus PCR Not Detected (NotDetected); Bordetella parapertussis PCR Not Detected (NotDetected); Bordetella pertussis PCR Not Detected (NotDetected); Chlamydia pneumoniae PCR Not Detected (NotDetected); Coronavirus 229E PCR Not Detected (NotDetected); Coronavirus CoV-2 (COVID19)PCR DETECTED (NotDetected); Coronavirus HKU1 PCR Not Detected (NotDetected); Coronavirus NL63 PCR Not Detected (NotDetected); Coronavirus OC43PCR Not Detected (NotDetected); Human Metapneumovirus PCR Not Detected (NotDetected); Influenza A PCR Not Detected (NotDetected); Influenza B PCR Not Detected (NotDetected); Mycoplasma pneumoniae PCR Not Detected (NotDetected); Parainfluenza Virus 1 PCR Not Detected (NotDetected); Parainfluenza Virus 2 PCR Not Detected (NotDetected); Parainfluenza Virus 3 PCR Not Detected (NotDetected); Parainfluenza Virus 4 PCR Not Detected (NotDetected); Respiratory Syncytial VirusPCR Not Detected (NotDetected); Rhinovirus/Enterovirus PCR Not Detected (NotDetected)
[2024-02-13 12:35] LABS: Appearance Urine Clear (Clear); Bacteria Urine Automated None Seen (None Seen); Bilirubin Urine Negative (Negative); Blood Urine Negative (Negative); Cast Urine Automated 0-2 /lpf (0-2); Color Urine Yellow; Epithelial Cell Urine Auto 0-2 /hpf (0-2); Glucose Urine UA Negative (Negative); Ketones Urine Negative (Negative); Leukocyte Esterase Urine Negative (Negative); Nitrite Urine Negative (Negative); Protein Urine 1+ (Negative); RBC Urine Automated 0-2 /hpf (0-2); Specific Gravity Urine 1.023 (1.000-1.030); Urobilinogen Urine Negative (Negative); WBC Urine Automated 0-5 /hpf (0-5)
--- NOTE | 2024-02-13 12:45 | History & Physical Report ---
Date of Service February 13, 2024 Assessment & Plan (1) Ambulatory dysfunction: Plan: Patient with recent acute decline 02/11, fatigue, unable to walk suspect component of worsening dementia along with acute component of COVID-19 infection - Fall and aspiration precautions - PT/OT to evaluate - family anticipating placement, may need intermodal customer service care facility if not acute (2) COVID-19: Plan: patient with fatigue and cough x 2 days No sick contacts - non-hypoxic, VSS - no leukocytosis - CXR negative for acute findings - conservative measures as patient not candidate for remdesivir with CrCl and family declined Paxlovid - promote oral hydration - prn Tylenol - O2 prn for O2 < 90 - isolation precautions (3) Fatigue: Plan: suspect secondary to COVID-19 infection - no focal neuro deficits on exam - will add TSH with reflex to T4 to am labs as has history of subclinical hypothyroidism - hold prn Xanax (4) Dementia: Plan: mental status at baseline Suspect contributing to ambulatory dysfunction and family aware that he may need intermodal customer service care placement - continue donepezil, memantine, and paroxetine - measures to avoid hospital acquired delirium as at increased risk with dementia - promote good sleep-wake cycles - promote PO intake - PT/OT to evaluate for mobility Plan Chronic stable diagnoses: CKD stage 3 - stable, avoid nephrotoxic agents HTN - continue lisinopril and amlodipine prediabetes - heart healthy diet VTE ppx: Heparin 5000 Q12H Diet: heart healthy Code status: DNR/DNI Dispo: Med surg; Pt/Ot to evaluate for possible placement Admission and Anticipated Discharge Date Admission Date: 02/13/24 History of Present Illness Chief Complaint: Weakness Primary Care Provider: Flynn Collier DO Patient is an 83-year-old male with past medical history of dementia, hypertension, CKD, and prediabetes. He comes in today via EMS with his family who stated that he has been tired since yesterday. They could barely get him up to eat yesterday. He also is unable to walk/stand on his own. They had to lift him from his bed to his recliner. He normally ambulates without assistance at baseline. They deny recent falls. They also stated that he has a cough that has worsened Sunday, he has a chronic cough. He has had poor p.o. intake since yesterday morning. He also has a resting tremor that has recently worsened, has neurology follow-up 02/28. His daughter stated that he also has had some urinary incontinence/using his depends during the daytime, he normally only uses these at night. His family is concerned about taking care of him at home with him being unable to ambulate, would like for PT/OT evals and anticipate placement. He has had physical therapy before, in August due to his neck pain. Patient unable to perform ROS given confusion and fatigue. Family denies rhinorrhea, sore throat, dyspnea, nausea, vomiting, diarrhea, constipation. Patient's , daughter, granddaughter updated at bedside. Allergies Allergy/AdvReac Type Severity Reaction Status Date / Time No Known Drug Allergies Allergy Verified 10/10/23 11:10 Home Medications Medication Instructions Recorded Confirmed Type multivitamin 1 tab PO QAM 01/05/19 02/13/24 History cyanocobalamin (vitamin B-12) 2,500 mcg PO Q OTHER DAY 08/31/22 02/13/24 History 2,500 mcg tablet alprazolam 0.5 mg tablet (Xanax) 0.5 mg PO DAILY PRN anxiety #60 03/08/23 02/13/24 Rx tabs cholecalciferol (vitamin D3) 1,250 50,000 unit PO .qweekly #14 tabs 03/08/23 02/13/24 Rx mcg (50,000 unit) tablet memantine 10 mg tablet 10 mg PO BID 90 days #180 tabs 09/03/23 02/13/24 Rx amlodipine 5 mg tablet 5 mg PO QAM 02/13/24 02/13/24 History donepezil 10 mg tablet 10 mg PO PM 02/13/24 02/13/24 History lisinopril 40 mg tablet 40 mg PO QAM hypertension 02/13/24 02/13/24 History paroxetine HCl 20 mg tablet 20 mg PO QAM 02/13/24 02/13/24 History Past Med/Surg History Problem List (Updated 02/13/24 @ 18:02 by Dameon Goode MD) Weakness (Acute) COVID (Acute) COVID-19 (Acute) Fatigue COVID-19 Ambulatory dysfunction Hypertension (Chronic) Dementia Dementia with behavioral disturbance Pre-diabetes CKD (chronic kidney disease) stage 3, GFR 30-59 ml/min Subclinical hypothyroidism B12 deficiency Cancer of prostate w/low recurrence risk (T1-2a, Erin<7 & PSA<10) (08/15/09) "Rising PSA, pretreatment PSA 5.39 Status post ultrasound-guided biopsies 02/14/2010 Adenocarcinoma the prostate Vass 3+3 Active surveillance Rising PSA to 14.400 Repeat biopsy 09/01/2016 Adenocarcinoma Erin 3+4 No hormone suppression required Status post placement of gold fiducial markers and Space OAR 10/31/2016 Status post completion of radiation therapy 01/08/2017 utilizing VMAT hypo- fractionation. He received 7000 cGy" On 09/20/16 16:20 Cesilia Escoto wrote "Rising PSA, pretreatment PSA 5.39 Status post ultrasound-guided biopsies 02/14/2010 Adenocarcinoma the prostate Erin 3+3 Active surveillance Rising PSA to 14.400 Repeat biopsy 09/01/2016 Adenocarcinoma Erin 3+4 " On 07/27/16 09:55 Omar Bass wrote "He presented in 2009 with a prostate-specific antigen of 5.39. He underwent ultrasound-guided biopsies. 20 biopsies were taken with only 2 positive for Erin grade 3+3 with minute amounts. Patient therefore had a very low risk prostate cancer. At age 69 his decision was made to proceed with active surveillance. The patient's prostate-specific antigen has been gradually increasing up to 10 and his most recent prostate-specific antigen was 14.4." Urinary retention with incomplete bladder emptying (Acute) Medical History (Updated 02/13/24 @ 18:02 by Dameon Goode MD) History of tobacco use disorder Skin lesion of right ear Seizure-like activity Adrenal nodule Anemia Dyslipidemia Hypercalcemia Cardiac murmur Surgical History History of appendectomy Family History Father Hypertension Cardiac disorder Myocardial infarction Denies family history of Ovarian cancer Prostate cancer Breast cancer Lung cancer Colorectal cancer Cancer Social History Smoking Status: Former smoker Tobacco Type: Cigarettes Age Started Using Tobacco: 15; Age Quit Using Tobacco: 82; packs per day: 0.25; Second Hand Exposure: No; Do You Dip or Chew Tobacco: No; Tobacco Cessation Education Requested by Patient: No Hx Alcohol Use: No Hx Substance Use: No Preferred Language: Spanish Communication Ability: Effective Visual Impairment: Diminished Hearing Ability: Normal Cloth Shrinking Tester Required: No Beliefs That Will Affect Care: None marital status: Current Living Situation: Spouse current occupational status: retired How many Children do You have: 3 Other Information That Helps Us Care for You: No Feels Safe at Home: Yes Safety Concerns: Feels Safe At This Time Childhood Exposure to Second-Hand Smoke: Yes Diet: regular caffeine: Yes Dental Care, Regularly: No Physical Activity Frequency: 3-4 Times per Week Physical Activity Frequency Comment: walk Seatbelt Use: always Sunscreen Use: No Review of Systems Review of Systems: see HPI Physical Exam Physical Exam: The patient is lethargic, confused at baseline, well developed and well nourished, normocephalic and atraumatic, in no acute distress. Non-toxic appearing. HEENT- EOMI, mucous membranes moist. Hearing grossly intact. Heart-normal S1 and S2. No murmurs, rubs or gallops. Lungs-clear bilaterally, no respiratory distress, no accessory muscle use. Abdomen-normal bowel sounds and soft. No ascites noted. Non-tender. Extremities- no clubbing, cyanosis, or edema. Resting tremor. Rheumatologic-normal range of motion. Psychiatric-normal affect. Musculoskeletal: no cyanosis or clubbing, extremities motor strength 5/5 Neurologic: PERRL, EOMI, accommodation nl, no face palsy, no dysarthria CN's II-XI intact bilaterally; no focal motor deficits Results & Data Results & Data Vital Signs (Past 12 Hours) Vital Signs Temp Pulse Pulse Resp BP BP Pulse Ox 02/13/24 11:49 66 16 154/91 H 98 02/13/24 10:28 68 16 152/73 H 92 02/13/24 10:03 66 16 92 02/13/24 09:34 66 02/13/24 09:28 37.1 C 66 16 139/78 92 02/13/24 09:28 02/13/24 09:28 37.1 C 68 16 139/78 94 O2 Del Method 02/13/24 11:49 Room Air 02/13/24 10:28 Room Air 02/13/24 10:03 Room Air 02/13/24 09:34 02/13/24 09:28 Room Air 02/13/24 09:28 Room Air 02/13/24 09:28 Room Air Code Status & VTE Plan Code Status DNR/DNI VTE Prophylaxis Plan VTE Prophylaxis will be ordered: Yes Supervising Physician Co-Signing Physician Notes Patient seen and examined, chart reviewed, case discussed with Tonya Stephenson PA-C and I agree with the assessment and plan as above except as otherwise noted Labs and images reviewed 83-year-old male with history of dementia, CAD, pre-DM with progressive fatigue who can now no longer walk/8/stand on his own. No recent falls but has progressive worsening cough and is COVID-positive. Nondistressed at the bedside. History is limited from patient due to dementia, but denies acute concerns pain or shortness of breath at the bedside. anticipating placement as patient's care needs currently to exceed his home environment especially given his worsening COVID. No indication for steroids on admission. Family had declined Paxlovid as outpatient.Agree with above. PT/OT pending PG Care Time/CCT Total # of Minutes Spent Total Time Spent with Patient: Total time spent is greater than 50% in coordination of care (as documented) at patient's floor/unit and/or counseling patient: Coding Level of Care Code 51411 INT INP/OBS CARE 3/75MIN Diagnoses Ambulatory dysfunction R26.2 COVID-19 U07.1 Fatigue R53.83 Dementia F03.90
--- NOTE | 2024-02-13 15:44 | Electrocardiogram Report ---
Test Reason : Blood Pressure : */* mmHG Vent. Rate : 67 BPM Atrial Rate : 67 BPM P-R Int : 172 ms QRS Dur : 96 ms QT Int : 350 ms P-R-T Axes : 78 -1 100 degrees QTcB Int : 369 ms Normal sinus rhythm Incomplete right bundle branch block Septal infarct , age undetermined Abnormal ECG Confirmed by Eulogio Rodriguez ([id number]) on 02/13/2024 3:44:08 PM Referred By: REFERRED SELF Confirmed By: Eulogio Rodriguez
[2024-02-13] MEDS ORDERED: ONDANSETRON INJ 2 MG/ML 2 ML VIAL IV PRN (22:09)
[2024-02-13] MEDS: ACETAMINOPHEN 325 MG TAB PO PRN (23:02)
[2024-02-13] MEDS: HEPARIN SOD 5,000 UNIT/0.5 ML VIAL SQ SCH (23:23)
[2024-02-13] MEDS: MEMANTINE HCL 10 MG TAB PO SCH (23:23)
[2024-02-13] MEDS: DONEPEZIL HCL 10 MG TAB PO SCH (23:23)
[2024-02-14 05:25] LABS: BUN Creatinine Ratio 21.4 (10-20); Calcium 9.7 mg/dl (8.6-10.3)
[2024-02-14 05:36] LABS: Hematocrit (blood only) 38.4 % (42.0-52.0); Hemoglobin 12.4 g/dl (14.0-18.0); Mean Corpuscular Hemoglobin 29.9 pg (25.0-34.0); Mean Corpuscular Hgb Conc 32.3 g/dL (32.0-36.0); Mean Corpuscular Volume 92.5 fL (80.0-100.0); Mean Platelet Volume 9.5 fL (9.4-12.4); Platelet Count 239 K/uL (130-400); RDW Standard Deviation 47.6 fL (36.4-46.3); Red Blood Count 4.15 M/uL (4.70-6.10); White Blood Count 4.69 K/ul (4.8-10.8)
[2024-02-14 05:40] LABS: Thyroid Stimulating Hormone 6.585 uIu/ml (0.300-4.500)
[2024-02-14 06:15] LABS: T4 Free Thyroxine 0.72 ng/dl (0.61-1.60)
[2024-02-14] MEDS: lisinopril 40 MG TAB PO SCH (09:08)
[2024-02-14] MEDS: amLODIPine BESYLATE 5 MG TAB PO SCH (09:08)
[2024-02-14] MEDS: PARoxetine HCL 20 MG TAB PO SCH (09:08)
[2024-02-14] MEDS: REMDESIVIR 200 MG in SODIUM CHLORIDE 0.9% 210 ML IV STA (09:57)
--- NOTE | 2024-02-14 16:28 | Hospitalist Progress Note ---
Date of Service February 14, 2024 Assessment & Plan (1) Ambulatory dysfunction: Plan: Patient with recent acute decline /, fatigue, unable to walk secondary to COVID-19 infection Improving, seen by PT and recommending to continue rehab in the hospital and will need 24/7 support but most likely will recover optimally in home setting with home health services and family support Granddaughter reports that the patient's is unable to fully support him if he is not independent Continue ongoing PT/OT (2) COVID-19: Plan: patient with fatigue and cough x 2 days-already improving No hypoxemia and CXR negative for acute findings Start Remdesivir times 5-day course given high risk for severe disease given advanced age and comorbidities. No renal dosing on Remdesivir anymore No indication for steroids Follow CMP (3) Dementia: Plan: mental status at baseline Suspect contributing to ambulatory dysfunction and family aware that he may need half-way care placement continue donepezil, memantine, and paroxetine measures to avoid hospital acquired delirium as at increased risk with dementia -promote good sleep-wake cycles, promote PO intake , PT/OT to evaluate for mobility Supportive care Plan Chronic stable diagnoses: CKD stage 3 - stable, avoid nephrotoxic agents, creatinine stable at 1.5 which is baseline HTN - continue lisinopril and amlodipine Subclinical hypothyroidism-TSH mildly elevated, free T4 normal-follow when not acutely ill as an outpatient VTE ppx: Heparin 5000 Q12H Code status: DNR/DNI Dispo: Medically stable for discharge, but awaiting rehab placement. Recommend ongoing daily PT/OT Admission and Anticipated Discharge Date Admission Date: February 13, 2024 Subjective Patient feeling much better, feeling stronger, appetite improved. Mild cough but improved Physical Exam Constitutional: WD/WN, vitals as above Respiratory: normal respiratory effort, lungs clear to auscultation Cardiovascular: RRR, no murmur, no edema Gastrointestinal (Abdomen): normal bowel sounds, soft, nontender, no hepatosplenomegaly Psychiatric: A+Ox3, euthymic affect Results & Data Results & Data Vital Signs (Past 12 Hours) Vital Signs Pulse Pulse Resp BP BP Pulse Ox O2 Del Method 02/14/24 16:00 63 14 93 02/14/24 15:06 67 14 02/14/24 14:39 63 22 02/14/24 13:00 62 20 111/53 L 94 Room Air 02/14/24 12:30 59 L 18 93/63 L 93 Room Air 02/14/24 11:00 58 L 18 124/56 L 93 Room Air 02/14/24 10:51 56 L 23 02/14/24 10:30 56 L 20 138/64 94 Room Air 02/14/24 10:00 58 L 20 129/60 93 Room Air 02/14/24 09:00 58 L 22 119/63 93 Room Air 02/14/24 08:03 57 L 20 158/64 H 95 Room Air 02/14/24 07:24 58 L 02/14/24 07:00 56 L 21 123/60 93 Room Air 02/14/24 06:06 61 22 02/14/24 06:00 154/72 H 94 02/14/24 05:42 55 L 24 02/14/24 05:03 56 L 25 H 94 02/14/24 05:00 131/62 02/14/24 04:57 66 26 H 02/14/24 04:30 124/59 L Laboratory Results CBC, BMP reviewed PG Care Time/CCT Total # of Minutes Spent Total Time Spent with Patient: Total time spent is greater than 50% in coordination of care (as documented) at patient's floor/unit and/or counseling patient: Coding Level of Care Code 61086 SUB INP/OBS CARE 2/35MIN Diagnoses Ambulatory dysfunction R26.2 COVID-19 U07.1 Dementia F03.90
[2024-02-15 07:08] LABS: Basophils # (auto) 0.02 K/uL (0.00-0.20); Basophils % (auto) 0.4 %; Eosinophils # (auto) 0.02 K/uL (0.00-0.50); Eosinophils % (auto) 0.4 %; Hematocrit (blood only) 37.6 % (42.0-52.0); Hemoglobin 12.6 g/dl (14.0-18.0); Immature Granulocytes # (auto) 0.03 K/uL (0.01-0.20); Immature Granulocytes % (auto) 0.6 %; Lymphocytes % (auto) 24.5 %; Mean Corpuscular Hemoglobin 30.1 pg (25.0-34.0); Mean Corpuscular Hgb Conc 33.5 g/dL (32.0-36.0); Mean Platelet Volume 9.5 fL (9.4-12.4); Monocytes # (auto) 0.68 K/uL (0.11-0.59); Monocytes % (auto) 12.8 %; Neutrophils # (auto) 3.25 K/uL (1.40-6.50); Neutrophils % (auto) 61.3 %; Platelet Count 263 K/uL (130-400); RDW Coefficient of Variation 13.7 % (11.5-14.5); RDW Standard Deviation 45.3 fL (36.4-46.3); Red Blood Count 4.18 M/uL (4.70-6.10)
[2024-02-15] MEDS: CYANOCOBALAMIN (B-12) 2,500 MCG TABLET PO SCH (08:47)
[2024-02-15] MEDS: REMDESIVIR 100 MG in SODIUM CHLORIDE 0.9% 230 ML IV SCH (09:37)
[2024-02-15 10:03] LABS: Albumin Globulin Ratio 1.4 (0.9-2); Albumin Level 3.8 gm/dl (3.4-5.0); BUN Creatinine Ratio 28.3 (10-20); Bilirubin,Total 0.4 mg/dl (0.2-1.0); Calcium 9.7 mg/dl (8.6-10.3); Creatinine Clr Calc Pharmacy 33.4 ml/min; Globulin 2.8 gm/dl (2.5-4.0); Magnesium 1.9 mg/dl (1.7-2.4); Potassium 4.1 mmol/L (3.5-5.1); Total Protein 6.6 gm/dl (6.0-8.3)
--- NOTE | 2024-02-15 17:00 | Hospitalist Progress Note ---
Date of Service February 15, 2024 Assessment & Plan (1) Ambulatory dysfunction: Plan: Patient with recent acute decline /, fatigue, unable to walk secondary to COVID-19 infection Improving, seen by PT and recommending to continue rehab in the hospital and will need 24/7 support but most likely will recover optimally in home setting with home health services and family support OT recommending snf facility Granddaughter reports that the patient's is unable to fully support him if he is not independent-he will need SNF placement which will be a challenge with bed availability and COVID-19 isolation required Continue ongoing PT/OT and encouraged patient to get out of bed on a daily basis with assistance to remain active (2) COVID-19: Plan: patient with fatigue and cough x 2 days-already improving No hypoxemia and CXR negative for acute findings Continue Remdesivir x 5-day course given high risk for severe disease given advanced age and comorbidities. No renal dosing on Remdesivir anymore as necessary If able to be discharged prior to the 5-day course being completed, it can be discontinued No indication for steroids Follow CMP periodically (3) Dementia: Plan: mental status at baseline Suspect contributing to ambulatory dysfunction and family aware that he may need senior living care placement continue donepezil, memantine, and paroxetine measures to avoid hospital acquired delirium as at increased risk with dementia -promote good sleep-wake cycles, promote PO intake , PT/OT to evaluate for mobility Supportive care Plan Chronic stable diagnoses: CKD stage 3 - stable, avoid nephrotoxic agents, creatinine 1.5 at baseline and he is actually less than that at this time HTN - continue lisinopril and amlodipine Subclinical hypothyroidism-TSH mildly elevated, free T4 normal-follow when not acutely ill as an outpatient VTE ppx: Heparin 5000 Q12H Code status: DNR/DNI Dispo: Medically stable for discharge, but awaiting rehab placement. Recommend ongoing daily PT/OT Admission and Anticipated Discharge Date Admission Date: February 13, 2024 Subjective Patient had some confusion through the night and has been in bed and sleeping most of the day. He is eating half his meals as per granddaughter. Mild cough. Denies pain Physical Exam Constitutional: WD/WN, vitals as above Respiratory: normal respiratory effort, lungs clear to auscultation Cardiovascular: RRR, no murmur, no edema Gastrointestinal (Abdomen): normal bowel sounds, soft, nontender, no hepatosplenomegaly Psychiatric: Orientation: + not alert (Drowsy but briefly wakes up) Results & Data Results & Data Vital Signs (Past 12 Hours) Vital Signs Temp Pulse Resp BP Pulse Ox O2 Del Method 02/15/24 08:42 36.5 C 64 18 117/61 96 Room Air Laboratory Results BMP, magnesium, LFTs, CBC reviewed PG Care Time/CCT Total # of Minutes Spent Total Time Spent with Patient: Total time spent is greater than 50% in coordination of care (as documented) at patient's floor/unit and/or counseling patient: Coding Level of Care Code 74648 SUB INP/OBS CARE 1/25MIN Diagnoses Ambulatory dysfunction R26.2 COVID-19 U07.1 Dementia F03.90
--- NOTE | 2024-02-16 10:43 | Hospitalist Progress Note ---
Date of Service February 16, 2024 Assessment & Plan (1) COVID-19: (2) Dementia: (3) Hypertension: (4) Pre-diabetes: (5) CKD (chronic kidney disease) stage 3, GFR 30-59 ml/min: (6) Subclinical hypothyroidism: Plan 83-year-old male with past medical history of dementia, hypertension, chronic kidney disease stage III, prediabetes comes via EMS with his family on admission with fatigue and lethargy and tested positive for COVID-19 #COVID-19 Patient was not hypoxic Chest x-ray did not show any infiltrates No indication for dexamethasone at this point He is currently on IV remdesivir (day 3) Monitor CMP intermittently while on IV remdesivir #Essential hypertension Patient is on amlodipine 5 mg daily and lisinopril 40 mg daily Given ambulatory dysfunction, check orthostatic vital signs The patient is orthostatic, hold amlodipine and reduce lisinopril to 20 mg daily Continue monitoring orthostatic vital signs daily: This was discussed with patient's nurse and DIRECTOR OF COMPLIANCE at bedside #CKD stage III Baseline creatinine is around 1.5 Patient is currently at his baseline Avoid nephrotoxic agents including NSAIDs Monitor renal function intermittently specially when he is on IV remdesivir #Prediabetes A1c 6.1 from 10/04/2023 Check repeat A1c Outpatient follow-up with PCP #Subclinical hypothyroidism TSH is 6.585 Free T4 is normal at 0.72 Patient will need recheck of his thyroid function test when he is not acutely ill as an outpatient in 3 to 4 weeks time through his PCP #Dementia Supportive care from nursing staff Continue Namenda 10 mg p.o. twice daily Continue donezepil 10 mg p.o. every afternoon Continue Paxil 20 mg daily As per , in the past patient was prescribed alprazolam for agitation by his PCP and patient got more agitated with alprazolam. EKG shows QTc B of 369: Discussed with family regarding using antipsychotics if needed for agitation and is okay with using Seroquel or olanzapine. Discussed increased mortality with antipsychotics and she is okay with that. As per , patient has lived a good life and their focus more on quality of life at this point. #Ambulatory dysfunction #Weakness Likely due to COVID-19 Check orthostatic vital signs PT saw the patient and recommended rehab in the hospital and will need 24/7 support in home setting with home health and family support. OT recommended care home facility. Family is not able to fully support patient at home if he is not completely independent and hence will need SNF placement CODE STATUS: DNR/DNI DVT prophylaxis: Heparin subcutaneous twice daily Care plan discussed with patient, nursing staff Monica ([phone]) updated on the phone Admission and Anticipated Discharge Date Admission Date: February 13, 2024 Subjective Patient seen and examined Patient has dementia and unable to get a full review of systems He thought he is at home and appears confused Appears comfortable Physical Exam Physical Exam: General: No acute distress Psych: Awake and oriented to self HEENT: Anicteric sclera, moist oral mucosa CVS: Regular rate and rhythm Lungs: Bilateral air entry, no wheezing noted Abdomen: Soft, nontender, no rebound, no guarding Ext: No lower extremity edema, no calf tenderness Results & Data Results & Data Vital Signs (Past 12 Hours) Vital Signs Temp Pulse Resp BP Pulse Ox O2 Del Method 02/16/24 08:00 36.7 C 55 L 18 128/62 92 Room Air PG Care Time/CCT Total # of Minutes Spent Total Time Spent with Patient: Total time spent is greater than 50% in coordination of care (as documented) at patient's floor/unit and/or counseling patient: Coding Level of Care Code 45565 SUB INP/OBS CARE 2/35MIN Diagnoses COVID-19 U07.1 Dementia F03.90 Hypertension I10 Pre-diabetes R73.03 CKD (chronic kidney disease) stage 3, GFR 30-59 ml/min N18.30 Subclinical hypothyroidism E03.8
[2024-02-16] MEDS: MELATONIN 3 MG TAB PO PRN (22:53)
[2024-02-17 07:39] LABS: Basophils # (auto) 0.01 K/uL (0.00-0.20); Basophils % (auto) 0.2 %; Eosinophils # (auto) 0.06 K/uL (0.00-0.50); Eosinophils % (auto) 1.4 %; Hematocrit (blood only) 37.3 % (42.0-52.0); Hemoglobin 12.8 g/dl (14.0-18.0); Immature Granulocytes # (auto) 0.02 K/uL (0.01-0.20); Immature Granulocytes % (auto) 0.5 %; Lymphocytes # (auto) 1.33 K/uL (1.20-3.40); Lymphocytes % (auto) 31.5 %; Mean Corpuscular Hemoglobin 31.2 pg (25.0-34.0); Mean Corpuscular Hgb Conc 34.3 g/dL (32.0-36.0); Mean Platelet Volume 9.5 fL (9.4-12.4); Monocytes # (auto) 0.49 K/uL (0.11-0.59); Monocytes % (auto) 11.6 %; Neutrophils # (auto) 2.31 K/uL (1.40-6.50); Neutrophils % (auto) 54.8 %; Platelet Count 257 K/uL (130-400); RDW Coefficient of Variation 13.7 % (11.5-14.5); RDW Standard Deviation 46.2 fL (36.4-46.3); White Blood Count 4.22 K/ul (4.8-10.8)
[2024-02-17 07:53] LABS: Albumin Globulin Ratio 1.2 (0.9-2); Albumin Level 3.6 gm/dl (3.4-5.0); Bilirubin,Total 0.3 mg/dl (0.2-1.0); Calcium 9.9 mg/dl (8.6-10.3); Creatinine Clr Calc Pharmacy 38.4 ml/min; Magnesium 1.9 mg/dl (1.7-2.4); Potassium 4.1 mmol/L (3.5-5.1); Total Protein 6.6 gm/dl (6.0-8.3)
[2024-02-17 08:12] LABS: Estimated Average Glucose 131 mg/dl; Hemoglobin A1C 6.2 % (4.5-5.6)
[2024-02-17] MEDS: lisinopril 20 MG TAB PO SCH (09:03)
--- NOTE | 2024-02-17 10:04 | Hospitalist Progress Note ---
Date of Service February 17, 2024 Assessment & Plan (1) COVID-19: (2) Dementia: (3) Hypertension: (4) Pre-diabetes: (5) CKD (chronic kidney disease) stage 3, GFR 30-59 ml/min: (6) Subclinical hypothyroidism: Plan 83-year-old male with past medical history of dementia, hypertension, chronic kidney disease stage III, prediabetes comes via EMS with his family on admission with fatigue and lethargy and tested positive for COVID-19 #COVID-19 Patient was not hypoxic Chest x-ray did not show any infiltrates No indication for dexamethasone at this point He is currently on IV remdesivir (day 4/5) Monitor CMP intermittently while on IV remdesivir #Essential hypertension Patient is on amlodipine 5 mg daily and lisinopril 40 mg daily at home Patient was found to be orthostatic on vital signs which may be also contributing to his ambulatory dysfunction Given his orthostatic vital signs: Amlodipine has been held and lisinopril has been reduced to 20 mg daily Continue monitoring orthostatic vital signs daily #CKD stage III Baseline creatinine is around 1.5 Patient is currently at his baseline Avoid nephrotoxic agents including NSAIDs Monitor renal function intermittently specially when he is on IV remdesivir #Prediabetes A1c 6.2 Outpatient follow-up with PCP #Subclinical hypothyroidism TSH is 6.585 Free T4 is normal at 0.72 Patient will need recheck of his thyroid function test when he is not acutely ill as an outpatient in 3 to 4 weeks time through his PCP #Dementia Supportive care from nursing staff Continue Namenda 10 mg p.o. twice daily Continue donezepil 10 mg p.o. every afternoon Continue Paxil 20 mg daily As per , in the past patient was prescribed alprazolam for agitation by his PCP and patient got more agitated with alprazolam. EKG shows QTc B of 369: Discussed with family including on 02/16/2024 regarding using antipsychotics if needed for agitation and is okay with using Seroquel or olanzapine. Discussed increased mortality with antipsychotics and she is okay with that. As per , patient has lived a good life and their focus more on quality of life at this point. As per nursing staff, no agitation noted #Ambulatory dysfunction #Weakness Likely due to COVID-19 PT saw the patient and recommended rehab in the hospital and will need 24/7 support in home setting with home health and family support. OT recommended [facility] facility. Family is not able to fully support patient at home if he is not completely independent and hence will need SNF placement CODE STATUS: DNR/DNI DVT prophylaxis: Heparin subcutaneous twice daily Care plan discussed with patient, nursing staff Monica ([phone]) updated on the phone yesterday, no new updates Admission and Anticipated Discharge Date Admission Date: February 13, 2024 Subjective Patient seen and examined As per nursing staff, no agitation He has been pleasant and cooperative Unable to get a full review of systems from patient due to dementia Appears comfortable Physical Exam Physical Exam: General: No acute distress Psych: Awake and oriented to self HEENT: Anicteric sclera, moist oral mucosa CVS: Regular rate and rhythm Lungs: Bilateral air entry, no wheezing noted Abdomen: Soft, nontender, no rebound, no guarding Ext: No lower extremity edema, no calf tenderness Results & Data Results & Data Vital Signs (Past 12 Hours) Vital Signs Temp Pulse Resp BP Pulse Ox O2 Del Method 02/17/24 08:48 62 156/60 H 02/17/24 08:48 58 L 145/58 H 02/17/24 08:45 36.4 C L 51 L 16 169/75 H 95 Room Air Laboratory Results Laboratory Results - last 24 hr 02/17/24 07:18 WBC 4.22 L RBC 4.10 L Hgb 12.8 L Hct 37.3 L MCV 91.0 MCH 31.2 MCHC 34.3 RDW Std Deviation 46.2 RDW Coeff of Radha 13.7 Plt Count 257 MPV 9.5 Immature Gran % (Auto) 0.5 Neut % (Auto) 54.8 Lymph % (Auto) 31.5 Gallia % (Auto) 11.6 Eos % (Auto) 1.4 Baso % (Auto) 0.2 Neut # (Auto) 2.31 Lymph # (Auto) 1.33 Gallia # (Auto) 0.49 Eos # (Auto) 0.06 Baso # (Auto) 0.01 Immature Gran # (Auto) 0.02 Sodium 137 Potassium 4.1 Chloride 107 Carbon Dioxide 23 Anion Gap 7 BUN 42 H Creatinine 1.20 Est Cr Clr Drug Dosing 38.4 eGFR 59.63 BUN/Creatinine Ratio 35.0 H Glucose 103 H Estimat Average Glucose 131 Hemoglobin A1c 6.2 H Calcium 9.9 Magnesium 1.9 Total Bilirubin 0.3 AST 29 ALT 18 Alkaline Phosphatase 90 Total Protein 6.6 Albumin 3.6 Globulin 3.0 Albumin/Globulin Ratio 1.2 Vitamin B12 > 1500 H PG Care Time/CCT Total # of Minutes Spent Total Time Spent with Patient: Total time spent is greater than 50% in coordination of care (as documented) at patient's floor/unit and/or counseling patient: Coding Level of Care Code 60306 SUB INP/OBS CARE 2/35MIN Diagnoses COVID-19 U07.1 Dementia F03.90 Hypertension I10 Pre-diabetes R73.03 CKD (chronic kidney disease) stage 3, GFR 30-59 ml/min N18.30 Subclinical hypothyroidism E03.8
--- NOTE | 2024-02-17 13:21 | Electrocardiogram Report ---
Test Reason : Blood Pressure : */* mmHG Vent. Rate : 58 BPM Atrial Rate : 58 BPM P-R Int : 190 ms QRS Dur : 92 ms QT Int : 380 ms P-R-T Axes : 72 54 155 degrees QTcB Int : 373 ms Sinus bradycardia Incomplete right bundle branch block Diffuse Minor Nonspecific T wave abnormality Abnormal ECG When compared with ECG of 13-Feb-2024 09:28, Criteria for Septal infarct are no longer Present Confirmed by Franklin Albarado ([id number]) on 02/17/2024 1:20:57 PM Referred By: REFERRED SELF Confirmed By: Franklin Albarado
[2024-02-17] MEDS ORDERED: CALCIUM CARBONATE 500 MG CHEWABLE TAB PO PRN (15:26)
[2024-02-17] MEDS: CALCIUM CARBONATE 500 MG CHEWABLE TAB PO ONE (15:57)
[2024-02-17] MEDS: ALUMINUM/MAGNESIUM/SIMETH (MAALOX MAX) 30 ML UDC PO STA (15:57)
--- NOTE | 2024-02-18 10:41 | Hospitalist Progress Note ---
Date of Service February 18, 2024 Assessment & Plan (1) COVID-19: (2) Dementia: (3) Hypertension: (4) Pre-diabetes: (5) CKD (chronic kidney disease) stage 3, GFR 30-59 ml/min: (6) Subclinical hypothyroidism: Plan 83-year-old male with past medical history of dementia, hypertension, chronic kidney disease stage III, prediabetes comes via EMS with his family on admission with fatigue and lethargy and tested positive for COVID-19 #COVID-19 Patient was not hypoxic Chest x-ray did not show any infiltrates No indication for dexamethasone at this point Patient is finished 5 days of IV remdesivir today #Essential hypertension Patient is on amlodipine 5 mg daily and lisinopril 40 mg daily at home Patient was found to be orthostatic on vital signs which may be also contributing to his ambulatory dysfunction Given his orthostatic vital signs: Amlodipine has been held and lisinopril has been reduced to 20 mg daily Continue monitoring orthostatic vital signs daily #CKD stage III Baseline creatinine is around 1.5 Patient is currently at his baseline Avoid nephrotoxic agents including NSAIDs Monitor renal function intermittently #Prediabetes A1c 6.2 Outpatient follow-up with PCP #Subclinical hypothyroidism TSH is 6.585 Free T4 is normal at 0.72 Patient will need recheck of his thyroid function test when he is not acutely ill as an outpatient in 3 to 4 weeks time through his PCP #Dementia Supportive care from nursing staff Continue Namenda 10 mg p.o. twice daily Continue donezepil 10 mg p.o. every afternoon Continue Paxil 20 mg daily As per , in the past patient was prescribed alprazolam for agitation by his PCP and patient got more agitated with alprazolam. EKG shows QTc B of 369: Discussed with family including on 02/16/2024 regarding using antipsychotics if needed for agitation and is okay with using Seroquel or olanzapine. Discussed increased mortality with antipsychotics and she is okay with that. As per , patient has lived a good life and their focus more on quality of life at this point. As per nursing staff, no agitation noted #Ambulatory dysfunction #Weakness Likely due to COVID-19 PT saw the patient and recommended rehab in the hospital and will need 24/7 support in home setting with home health and family support. OT recommended longterm facility. Family is not able to fully support patient at home if he is not completely independent and hence will need SNF placement CODE STATUS: DNR/DNI DVT prophylaxis: Heparin subcutaneous twice daily Patient awaiting placement to SNF [facility] ([phone]) updated on the phone Admission and Anticipated Discharge Date Admission Date: February 13, 2024 Subjective Patient seen and examined Mentation seems to be slightly improved today, appears comfortable Denies any new complaints Yesterday he had episode of chest pain which appears to have been GERD related as it all resolved after antacids EKG did not show ischemic changes and troponin was negative x 2 Finishing last dose of IV remdesivir today He is orthostatic on vitals Physical Exam Physical Exam: General: No acute distress Psych: Awake and oriented to self HEENT: Anicteric sclera, moist oral mucosa CVS: Regular rate and rhythm Lungs: Bilateral air entry, no wheezing noted Abdomen: Soft, nontender, no rebound, no guarding Ext: No lower extremity edema, no calf tenderness Results & Data Results & Data Vital Signs (Past 12 Hours) Vital Signs Temp Pulse Resp BP Pulse Ox O2 Del Method 02/18/24 08:16 36.8 C 62 16 138/55 L 97 Room Air Laboratory Results Laboratory Results - last 24 hr 02/17/24 02/17/24 12:33 19:13 Troponin I High Sens 11.9 8.8 PG Care Time/CCT Total # of Minutes Spent Total Time Spent with Patient: Total time spent is greater than 50% in coordination of care (as documented) at patient's floor/unit and/or counseling patient: Coding Level of Care Code 04372 SUB INP/OBS CARE 2/35MIN Diagnoses COVID-19 U07.1 Dementia F03.90 Hypertension I10 Pre-diabetes R73.03 CKD (chronic kidney disease) stage 3, GFR 30-59 ml/min N18.30 Subclinical hypothyroidism E03.8
--- NOTE | 2024-02-19 14:12 | Hospitalist Progress Note ---
Date of Service February 19, 2024 Assessment & Plan (1) COVID-19: (2) Dementia: (3) Hypertension: (4) Pre-diabetes: (5) CKD (chronic kidney disease) stage 3, GFR 30-59 ml/min: (6) Subclinical hypothyroidism: Plan 83-year-old male with past medical history of dementia, hypertension, chronic kidney disease stage III, prediabetes admitted with fatigue and lethargy, found to have COVID-19 #COVID-19 Patient was not hypoxic Chest x-ray did not show any infiltrates completed 5 days of remdesivir, did not require treatment with dexamethasone currently asymptomatic #Essential hypertension Patient is on amlodipine 5 mg daily and lisinopril 40 mg daily at home Patient was found to be orthostatic on vital signs which may be also contributing to his ambulatory dysfunction Given his orthostatic vital signs: Amlodipine has been held and lisinopril has been reduced to 20 mg daily - there continue to be mild drop in blood pressure with standing though significantly improved. Pulse went up 10 points, blood pressure dropped from 156/82 lying to 130/68 standing. he denied symptoms #CKD stage III Baseline creatinine is around 1.5 Patient is currently at his baseline Avoid nephrotoxic agents including NSAIDs Monitor renal function intermittently #Prediabetes A1c 6.2 Outpatient follow-up with PCP #Subclinical hypothyroidism TSH is 6.585 Free T4 is normal at 0.72 Patient will need recheck of his thyroid function test when he is not acutely ill as an outpatient in 3 to 4 weeks time through his PCP #Dementia Supportive care from nursing staff Continue Namenda 10 mg p.o. twice daily Continue donezepil 10 mg p.o. every afternoon Continue Paxil 20 mg daily As per , in the past patient was prescribed alprazolam for agitation by his PCP and patient got more agitated with alprazolam. EKG shows QTc B of 369: Discussed with family including on 02/16/2024 regarding using antipsychotics if needed for agitation and is okay with using Seroquel or olanzapine. Discussed increased mortality with antipsychotics and she is okay with that. As per , patient has lived a good life and their focus more on quality of life at this point. As per nursing staff, no agitation noted #Ambulatory dysfunction #Weakness Likely due to COVID-19 PT saw the patient and recommended rehab in the hospital and will need 24/7 support in home setting with home health and family support. OT recommended [facility] facility. Family is not able to fully support patient at home if he is not completely independent and hence will need SNF placement CODE STATUS: DNR/DNI DVT prophylaxis: Heparin subcutaneous twice daily Patient awaiting placement to SNF. [facility] to offer a bed, more referrals made today Monica ([phone]) Admission and Anticipated Discharge Date Admission Date: February 13, 2024 Subjective Awake and alert, says he is feeling pretty well - about his usual self No chest pain cough or dyspnea Physical Exam Physical Exam: PHYSICAL EXAMINATION Last 24h vital signs reviewed, see documentation in flowsheet General: comfortable appearing, no distress, sleeping on side in bed aroused easily to voice HEENT: Normocephalic, atraumatic, pupils round and equal, sclerae anicteric, no conjunctival injection, moist mucus membranes Lungs: Normal respiratory effort. Clear to auscultation bilaterally. No RRW. not observed to be coughing Heart: Regular rate and rhythm, no murmurs. No JVD Abdomen: Soft, nontender, nondistended. Bowel sounds present. Extremities: Warm, dry, well-perfused. No extremity edema. Neuro: Alert and pleasantly confused, face symmetric, moves 4 extremities well Psych: Normal affect and behavior Results & Data Results & Data Vital Signs (Past 12 Hours) Vital Signs Temp Pulse Resp BP Pulse Ox O2 Del Method 02/19/24 08:23 98.6 F 60 22 145/72 H 94 Room Air PG Care Time/CCT Total # of Minutes Spent Total Time Spent with Patient: Total time spent is greater than 50% in coordination of care (as documented) at patient's floor/unit and/or counseling patient: Coding Level of Care Code 39196 SUB INP/OBS CARE 1/25MIN Diagnoses COVID-19 U07.1 Dementia F03.90 Hypertension I10 Pre-diabetes R73.03 CKD (chronic kidney disease) stage 3, GFR 30-59 ml/min N18.30 Subclinical hypothyroidism E03.8
[2024-02-19] MEDS: MELATONIN 3 MG TAB PO ONE (22:42)
[2024-02-19] MEDS: ACETAMINOPHEN 500 MG TAB PO PRN (22:42)
--- NOTE | 2024-02-20 12:36 | Hospitalist Progress Note ---
Date of Service February 20, 2024 Assessment & Plan (1) COVID-19: (2) Dementia: (3) Hypertension: (4) Pre-diabetes: (5) CKD (chronic kidney disease) stage 3, GFR 30-59 ml/min: (6) Subclinical hypothyroidism: Plan 83-year-old male with past medical history of dementia, hypertension, chronic kidney disease stage III, prediabetes admitted with fatigue and lethargy, found to have COVID-19 #COVID-19 Patient was not hypoxic Chest x-ray did not show any infiltrates completed 5 days of remdesivir, did not require treatment with dexamethasone resolved, currently asymptomatic #Essential hypertension Patient is on amlodipine 5 mg daily and lisinopril 40 mg daily at home Patient was found to be orthostatic on vital signs which may be also contributing to his ambulatory dysfunction continues to have periods of orthostatic hypotension, hypotension continue holding amlodipine and will reduce lisinopril to 10 mg daily #CKD stage III Baseline creatinine is around 1.5 Patient is currently at his baseline Avoid nephrotoxic agents including NSAIDs Monitor renal function intermittently #Prediabetes A1c 6.2 Outpatient follow-up with PCP #Subclinical hypothyroidism TSH is 6.585 Free T4 is normal at 0.72 Patient will need recheck of his thyroid function test when he is not acutely ill as an outpatient in 3 to 4 weeks time through his PCP #Dementia Supportive care from nursing staff Continue Namenda 10 mg p.o. twice daily Continue donezepil 10 mg p.o. every afternoon Continue Paxil 20 mg daily As per , in the past patient was prescribed alprazolam for agitation by his PCP and patient got more agitated with alprazolam. EKG shows QTc B of 369: Discussed with family including on 02/16/2024 regarding using antipsychotics if needed for agitation and is okay with using Seroquel or olanzapine. Discussed increased mortality with antipsychotics and she is okay with that. As per , patient has lived a good life and their focus more on quality of life at this point. As per nursing staff, no agitation noted #Ambulatory dysfunction #Weakness Likely due to COVID-19 PT saw the patient and recommended rehab in the hospital and will need 24/7 support in home setting with home health and family support. OT recommended shelter facility. Family is not able to fully support patient at home if he is not completely independent and hence will need SNF placement CODE STATUS: DNR/DNI DVT prophylaxis: Heparin subcutaneous twice daily Patient awaiting placement to SNF. [facility] ([phone]) Admission and Anticipated Discharge Date Admission Date: February 13, 2024 Subjective remains pleasant and cooperative, pleasantly confused, denies any cough shortness of breath chest pain or abdominal pain, no nausea or diarrhea Physical Exam Physical Exam: PHYSICAL EXAMINATION Last 24h vital signs reviewed, see documentation in flowsheet General: thin elderly gentleman lying on side of bed napping aroused to voice exam unchanged 02/19 HEENT: Normocephalic, atraumatic, pupils round and equal, sclerae anicteric, no conjunctival injection, moist mucus membranes Lungs: Normal respiratory effort. Clear to auscultation bilaterally. No RRW. not observed to be coughing Heart: Regular rate and rhythm, no murmurs. No JVD Abdomen: Soft, nontender, nondistended. Bowel sounds present. Extremities: Warm, dry, well-perfused. No extremity edema. Neuro: Alert and pleasantly confused, face symmetric, moves 4 extremities well Psych: Normal affect and behavior Results & Data Results & Data Vital Signs (Past 12 Hours) Vital Signs Temp Pulse Pulse Resp BP BP Pulse Ox 02/20/24 09:16 96.3 F L 72 18 97/70 L 96 02/20/24 08:20 97.3 F L 71 18 138/66 98 O2 Del Method 02/20/24 09:16 Room Air 02/20/24 08:20 Room Air PG Care Time/CCT Total # of Minutes Spent Total Time Spent with Patient: Total time spent is greater than 50% in coordination of care (as documented) at patient's floor/unit and/or counseling patient: Coding Level of Care Code 25247 SUB INP/OBS CARE 2/35MIN Diagnoses COVID-19 U07.1 Dementia F03.90 Hypertension I10 Pre-diabetes R73.03 CKD (chronic kidney disease) stage 3, GFR 30-59 ml/min N18.30 Subclinical hypothyroidism E03.8
--- NOTE | 2024-02-20 20:55 | Communication Note ---
Date of Service: February 20, 2024 Received message from nursing that bed alarm went off and patient was found on the ground beside bed saying that he fell. Denies hitting his head or loss of consciousness. Does have a right upper arm skin tear and redness on the right back. This was covered with bandages by nursing. Patient states that he remembers falling and that he did not hit his head. On physical exam there was right rib pain. He is alert and oriented x 1, this is his baseline. Rib x-rays of the right were negative. Will continue monitoring for now with bed alarmed in place
--- NOTE | 2024-02-20 23:13 | XRay Report ---
Exam(s): XR RIGHT RIBS EXAM: XR Right Ribs and AP Chest, 3 or More Views CLINICAL HISTORY: Reason for exam: fall, right midaxillary rib pain. TECHNIQUE: Frontal and oblique views of the right ribs and frontal view of the chest. COMPARISON: Chest x-ray 02/13/2024 FINDINGS: Lungs: Scarring at the left base unchanged. No consolidation. Pleural space: Unremarkable. No pneumothorax. Heart: Unremarkable. No cardiomegaly. Mediastinum: Unremarkable. Normal mediastinal contour. Bones/joints: No radiographically evident fracture or malalignment. Other findings: Clustered calcifications over the right chest again visualized. IMPRESSION: No radiographically evident fracture or malalignment. Electronically signed by: Liam Marsh MD 02/20/24 23:12 PM
[2024-02-21] MEDS: lisinopril 10 MG TAB PO SCH (10:51)
--- NOTE | 2024-02-21 15:44 | Hospitalist Progress Note ---
Date of Service February 21, 2024 Assessment & Plan (1) COVID-19: (2) Dementia: (3) Hypertension: (4) Pre-diabetes: (5) CKD (chronic kidney disease) stage 3, GFR 30-59 ml/min: (6) Subclinical hypothyroidism: Plan 83-year-old male with past medical history of dementia, hypertension, chronic kidney disease stage III, prediabetes admitted with fatigue and lethargy, found to have COVID-19 #COVID-19 Patient was not hypoxic Chest x-ray did not show any infiltrates completed 5 days of remdesivir, did not require treatment with dexamethasone resolved, currently asymptomatic Fall overnight, bruised ribs -CXR and rib films negative for fracture -lidocaine patch, APAP -AM CBC #Essential hypertension Patient is on amlodipine 5 mg daily and lisinopril 40 mg daily at home Patient was found to be orthostatic on vital signs which may be also contributing to his ambulatory dysfunction continues to have periods of orthostatic hypotension, hypotension continue holding amlodipine and reduced lisinopril to 10 mg daily -orthostatic vitals normal 02/19. -AM BMP #CKD stage III Baseline creatinine is around 1.5 Patient is currently at his baseline Avoid nephrotoxic agents including NSAIDs Monitor renal function intermittently #Prediabetes A1c 6.2 Outpatient follow-up with PCP #Subclinical hypothyroidism TSH is 6.585 Free T4 is normal at 0.72 Patient will need recheck of his thyroid function test when he is not acutely ill as an outpatient in 3 to 4 weeks time through his PCP #Dementia Supportive care from nursing staff Continue Namenda 10 mg p.o. twice daily Continue donezepil 10 mg p.o. every afternoon Continue Paxil 20 mg daily As per , in the past patient was prescribed alprazolam for agitation by his PCP and patient got more agitated with alprazolam. EKG shows QTc B of 369: Discussed with family including on 02/16/2024 regarding using antipsychotics if needed for agitation and is okay with using Seroquel or olanzapine. Discussed increased mortality with antipsychotics and she is okay with that. As per , patient has lived a good life and their focus more on quality of life at this point. As per nursing staff, no agitation noted #Ambulatory dysfunction #Weakness Likely due to COVID-19 PT saw the patient and recommended rehab in the hospital and will need 24/7 support in home setting with home health and family support. OT recommended custodial facility. Family is not able to fully support patient at home if he is not completely independent and hence will need SNF placement CODE STATUS: DNR/DNI DVT prophylaxis: Heparin subcutaneous twice daily Patient awaiting placement to SNF. [facility] ([phone]) Admission and Anticipated Discharge Date Admission Date: February 13, 2024 Subjective Overnight he was found by nursing staff having fallen out of bed He has pain and tenderness right lateral ribs. These hurt when he breathes deeply Nothing else is hurting. He got a skin tear on his arm. Physical Exam Physical Exam: PHYSICAL EXAMINATION Last 24h vital signs reviewed, see documentation in flowsheet General: thin elderly gentleman lying on side of bed napping aroused to voice HEENT: Normocephalic, atraumatic, pupils round and equal, sclerae anicteric, no conjunctival injection, moist mucus membranes Lungs: Normal respiratory effort. Clear to auscultation bilaterally. No RRW. back, neck, T- and L-spine without deformity and nontender to palpation. Tenderness to palpation right lower lateral ribs. No ecchymosis or deformity Heart: Regular rate and rhythm, no murmurs. No JVD Abdomen: Soft, nontender, nondistended. Bowel sounds present. Extremities: Warm, dry, well-perfused. No extremity edema. Neuro: Alert and pleasantly confused, face symmetric, moves 4 extremities well Psych: Normal affect and behavior Results & Data Results & Data Vital Signs (Past 12 Hours) Vital Signs Temp Pulse Resp BP Pulse Ox O2 Del Method 02/21/24 15:05 98.2 F 60 17 132/72 98 Room Air 02/21/24 14:57 98.1 F 68 18 129/68 98 Room Air 02/21/24 08:00 98.1 F 72 16 151/76 H 96 Room Air PG Care Time/CCT Total # of Minutes Spent Total Time Spent with Patient: Total time spent is greater than 50% in coordination of care (as documented) at patient's floor/unit and/or counseling patient: Coding Level of Care Code 97351 SUB INP/OBS CARE 2/35MIN Diagnoses COVID-19 U07.1 Dementia F03.90 Hypertension I10 Pre-diabetes R73.03 CKD (chronic kidney disease) stage 3, GFR 30-59 ml/min N18.30 Subclinical hypothyroidism E03.8
[2024-02-22 07:49] LABS: Hematocrit (blood only) 37.1 % (42.0-52.0); Hemoglobin 12.3 g/dl (14.0-18.0); Mean Corpuscular Hemoglobin 30.1 pg (25.0-34.0); Mean Corpuscular Hgb Conc 33.2 g/dL (32.0-36.0); Mean Corpuscular Volume 90.9 fL (80.0-100.0); Mean Platelet Volume 9.3 fL (9.4-12.4); Platelet Count 345 K/uL (130-400); RDW Coefficient of Variation 13.5 % (11.5-14.5); RDW Standard Deviation 45.6 fL (36.4-46.3); Red Blood Count 4.08 M/uL (4.70-6.10); White Blood Count 7.22 K/ul (4.8-10.8)
[2024-02-22 08:40] LABS: Calcium 10.1 mg/dl (8.6-10.3); Potassium 4.4 mmol/L (3.5-5.1)
[2024-02-22 08:46] LABS: Creatinine Clr Calc Pharmacy 32.7 ml/min
--- NOTE | 2024-02-22 13:14 | Hospitalist Progress Note ---
Date of Service February 22, 2024 Assessment & Plan (1) COVID-19: (2) Dementia: (3) Hypertension: (4) Pre-diabetes: (5) CKD (chronic kidney disease) stage 3, GFR 30-59 ml/min: (6) Subclinical hypothyroidism: Plan 83-year-old male with past medical history of dementia, hypertension, chronic kidney disease stage III, prediabetes admitted with fatigue and lethargy, found to have COVID-19 #COVID-19 Patient was not hypoxic Chest x-ray did not show any infiltrates completed 5 days of remdesivir, did not require treatment with dexamethasone resolved, currently asymptomatic Fall overnight 02/19-02/20, bruised ribs -CXR and rib films negative for fracture -lidocaine patch, APAP - denies any pain today - reviewed CBC today mild stable anemia, no leukocytosis normal platelet count #Essential hypertension, symptomatic orthostatic hypotension Home meds were amlodipine 5 mg daily, lisinopril 40 mg daily amlodipine was stopped and lisinopril reduced to 10 mg daily - blood pressure is at goal 130s over 70s. systolic pressure dropped from 137-->115 standing however he is not symptomatic today - BMP reviewed potassium 4.4 #CKD stage III Baseline creatinine is around 1.5 BMP 02/21, creatinine at baseline 1.4 #Prediabetes A1c 6.2 Outpatient follow-up with PCP #Subclinical hypothyroidism TSH is 6.585 Free T4 is normal at 0.72 Patient will need recheck of his thyroid function test when he is not acutely ill as an outpatient in 3 to 4 weeks time through his PCP #Dementia benzodiazepine has caused paradoxical agitation in the past continue Namenda, donepezil, Paxil has not had any agitation this week, remains calm and cooperative #Ambulatory dysfunction #Weakness PT saw the patient and recommended rehab in the hospital and will need 24/7 support in home setting with home health and family support. OT recommended group home facility. Family is not able to fully support patient at home if he is not completely independent and hence will need SNF placement CODE STATUS: DNR/DNI DVT prophylaxis: Heparin subcutaneous twice daily Patient awaiting placement to SNF. Monica ([phone]) Admission and Anticipated Discharge Date Admission Date: February 13, 2024 Kalyan Martinez is no longer requiring isolation precautions he is currently walking in the hallway with his physical therapist he denies any rib or chest pain, no coughing or shortness of breath Physical Exam 2 Physical Exam: PHYSICAL EXAMINATION Last 24h vital signs reviewed, see documentation in flowsheet General: walking in hallway fairly steady with walker assistance of physical therapist HEENT: moist mucus membranes Lungs: normal work of breathing Heart: deferred Abdomen: nondistended Extremities: Warm, dry, well-perfused. No extremity edema. Neuro: alert, oriented to self but not fully to situation, walks fairly steadily with walker and assistance Psych: Normal affect and behavior Results & Data Results & Data Vital Signs (Past 12 Hours) Vital Signs Temp Pulse Resp BP Pulse Ox O2 Del Method 02/22/24 08:20 97.9 F 63 16 132/71 96 Room Air Laboratory Results 02/22/24 07:07 02/22/24 07:07 PG Care Time/CCT Total # of Minutes Spent Total Time Spent with Patient: Total time spent is greater than 50% in coordination of care (as documented) at patient's floor/unit and/or counseling patient: Coding Level of Care Code 49016 SUB INP/OBS CARE 2/35MIN Diagnoses COVID-19 U07.1 Dementia F03.90 Hypertension I10 Pre-diabetes R73.03 CKD (chronic kidney disease) stage 3, GFR 30-59 ml/min N18.30 Subclinical hypothyroidism E03.8
[2024-02-22] MEDS: OLANZapine ZYDIS 5 MG ORALLY DIS. TAB PO ONE (18:28)
--- NOTE | 2024-02-23 13:17 | Hospitalist Progress Note ---
Date of Service February 23, 2024 Assessment & Plan (1) COVID-19: (2) Dementia: (3) Hypertension: (4) Pre-diabetes: (5) CKD (chronic kidney disease) stage 3, GFR 30-59 ml/min: (6) Subclinical hypothyroidism: Plan 83-year-old male with past medical history of dementia, hypertension, chronic kidney disease stage III, prediabetes admitted with fatigue and lethargy, found to have COVID-19 #COVID-19 Patient was not hypoxic Chest x-ray did not show any infiltrates completed 5 days of remdesivir, did not require treatment with dexamethasone resolved, currently asymptomatic Fall overnight 02/19-02/20, bruised ribs -CXR and rib films negative for fracture -lidocaine patch, APAP #Essential hypertension, symptomatic orthostatic hypotension Home meds were amlodipine 5 mg daily, lisinopril 40 mg daily amlodipine was stopped and lisinopril reduced to 10 mg daily -BP normal past 48h - BMP reviewed potassium 4.4 #CKD stage III Baseline creatinine is around 1.5 BMP 02/21, creatinine at baseline 1.4 #Prediabetes A1c 6.2 Outpatient follow-up with PCP #Subclinical hypothyroidism TSH is 6.585 Free T4 is normal at 0.72 Patient will need recheck of his thyroid function test when he is not acutely ill as an outpatient in 3 to 4 weeks time through his PCP #Dementia benzodiazepine has caused paradoxical agitation in the past continue Namenda, donepezil, Paxil has not had any agitation this week, remains calm and cooperative #Ambulatory dysfunction #Weakness PT saw the patient and recommended rehab in the hospital and will need 24/7 support in home setting with home health and family support. OT recommended snf facility. Family is not able to fully support patient at home if he is not completely independent and hence will need SNF placement CODE STATUS: DNR/DNI DVT prophylaxis: Heparin subcutaneous twice daily Patient awaiting placement to SNF. Monica ([phone]) Admission and Anticipated Discharge Date Admission Date: February 13, 2024 Subjective R chest wall is still sore. No coughing or shortness of breath Physical Exam Physical Exam: PHYSICAL EXAMINATION Last 24h vital signs reviewed, see documentation in flowsheet General: he is watching [employer] on TV HEENT: moist mucus membranes Lungs: normal work of breathing. Right lower chest wall TTP with no visible ecchymosis or deformity Heart: reg no mrg Abdomen: nondistended nontender Extremities: Warm, dry, well-perfused. No extremity edema. Neuro: alert, oriented to self, pleasantly confused Psych: Normal affect and behavior Results & Data Results & Data Vital Signs (Past 12 Hours) Vital Signs Temp Pulse Resp BP Pulse Ox O2 Del Method 02/23/24 10:01 98.3 F 62 14 121/50 L 95 Room Air PG Care Time/CCT Total # of Minutes Spent Total Time Spent with Patient: Total time spent is greater than 50% in coordination of care (as documented) at patient's floor/unit and/or counseling patient: Coding Level of Care Code 29699 SUB INP/OBS CARE 04/05MIN Diagnoses COVID-19 U07.1 Dementia F03.90 Hypertension I10 Pre-diabetes R73.03 CKD (chronic kidney disease) stage 3, GFR 30-59 ml/min N18.30 Subclinical hypothyroidism E03.8
[2024-02-24] MEDS: DOCUSATE SODIUM 100 MG CAP PO PRN (08:21)
--- NOTE | 2024-02-24 15:50 | Hospitalist Progress Note ---
Date of Service February 24, 2024 Assessment & Plan (1) COVID-19: (2) Dementia: (3) Hypertension: (4) Pre-diabetes: (5) CKD (chronic kidney disease) stage 3, GFR 30-59 ml/min: (6) Subclinical hypothyroidism: Plan 83-year-old male with past medical history of dementia, hypertension, chronic kidney disease stage III, prediabetes admitted with fatigue and lethargy, found to have COVID-19 #COVID-19 He was not hypoxic, minimal respiratory symptoms Chest x-ray did not show any infiltrates completed 5 days of remdesivir, did not require treatment with dexamethasone resolved, currently asymptomatic Fall overnight 02/19-02/20, bruised ribs -CXR and rib films negative for fracture -lidocaine patch, APAP. soreness improved #Essential hypertension, symptomatic orthostatic hypotension Home meds were amlodipine 5 mg daily, lisinopril 40 mg daily amlodipine was stopped and lisinopril reduced to 10 mg daily -BP normal, no longer orthostatic #CKD stage III Baseline creatinine is around 1.5 BMP 02/21, creatinine at baseline 1.4 #Prediabetes A1c 6.2 Outpatient follow-up with PCP #Subclinical hypothyroidism TSH is 6.585 Free T4 is normal at 0.72 Patient will need recheck of his thyroid function test when he is not acutely ill as an outpatient in 3 to 4 weeks time through his PCP #Dementia benzodiazepine has caused paradoxical agitation in the past continue Namenda, donepezil, Paxil has not had any agitation this week, remains calm and cooperative #Ambulatory dysfunction #Weakness PT saw the patient and recommended rehab in the hospital and will need 24/7 support in home setting with home health and family support. OT recommended [facility] facility. Family is not able to fully support patient at home if he is not completely independent and hence will need SNF placement CODE STATUS: DNR/DNI DVT prophylaxis: Heparin subcutaneous twice daily Patient awaiting placement to SNF. Monica ([phone]) - updated by phone 02/23 Admission and Anticipated Discharge Date Admission Date: February 13, 2024 Subjective agrees he likes to watch football but can't tell me his favorite team no complaints not coughing R ribs still a little sore better with APAP Physical Exam Physical Exam: PHYSICAL EXAMINATION Last 24h vital signs reviewed, see documentation in flowsheet General: awake lying in bed calm HEENT: moist mucus membranes Lungs: normal work of breathing. Heart: reg no mrg Abdomen: nondistended nontender Extremities: Warm, dry, well-perfused. No extremity edema. Neuro: alert, oriented to self, pleasantly confused Psych: Normal affect and behavior Results & Data Results & Data Vital Signs (Past 12 Hours) Vital Signs Temp Pulse Resp BP BP Pulse Ox O2 Del Method 02/24/24 15:01 97.7 F 85 18 114/68 97 Room Air 02/24/24 09:55 98.0 F 71 16 129/74 95 Room Air 02/24/24 08:30 Room Air PG Care Time/CCT Total # of Minutes Spent Total Time Spent with Patient: Total time spent is greater than 50% in coordination of care (as documented) at patient's floor/unit and/or counseling patient: Coding Level of Care Code 53503 SUB INP/OBS CARE 1/25MIN Diagnoses COVID-19 U07.1 Dementia F03.90 Hypertension I10 Pre-diabetes R73.03 CKD (chronic kidney disease) stage 3, GFR 30-59 ml/min N18.30 Subclinical hypothyroidism E03.8
--- NOTE | 2024-02-25 16:23 | Hospitalist Progress Note ---
Date of Service February 25, 2024 Assessment & Plan (1) COVID-19: (2) Dementia: (3) Hypertension: (4) Pre-diabetes: (5) CKD (chronic kidney disease) stage 3, GFR 30-59 ml/min: (6) Subclinical hypothyroidism: Plan 83-year-old male with past medical history of dementia, hypertension, chronic kidney disease stage III, prediabetes admitted with fatigue and lethargy, found to have COVID-19 No events or changes to plan of care 02/24. Doing well, awaiting placement. #COVID-19 He was not hypoxic, minimal respiratory symptoms Chest x-ray did not show any infiltrates completed 5 days of remdesivir, did not require treatment with dexamethasone resolved, currently asymptomatic Fall overnight 02/19-02/20, bruised ribs -CXR and rib films negative for fracture -lidocaine patch, APAP. soreness improved #Essential hypertension, symptomatic orthostatic hypotension Home meds were amlodipine 5 mg daily, lisinopril 40 mg daily amlodipine was stopped and lisinopril reduced to 10 mg daily -BP normal, no longer orthostatic #CKD stage III Baseline creatinine is around 1.5 BMP 02/21, creatinine at baseline 1.4 #Prediabetes A1c 6.2 Outpatient follow-up with PCP #Subclinical hypothyroidism TSH is 6.585 Free T4 is normal at 0.72 Patient will need recheck of his thyroid function test when he is not acutely ill as an outpatient in 3 to 4 weeks time through his PCP #Dementia benzodiazepine has caused paradoxical agitation in the past continue Namenda, donepezil, Paxil has not had any agitation this week, remains calm and cooperative #Ambulatory dysfunction #Weakness PT saw the patient and recommended rehab in the hospital and will need 24/7 support in home setting with home health and family support. OT recommended [facility] facility. Family is not able to fully support patient at home if he is not completely independent and hence will need SNF placement CODE STATUS: DNR/DNI DVT prophylaxis: Heparin subcutaneous twice daily Patient awaiting placement to SNF. Monica ([phone]) - updated by phone 02/23 Admission and Anticipated Discharge Date Admission Date: February 13, 2024 Subjective getting a shave from psychiatric nursing aide sitting in chair no events feels well pleasantly confused Physical Exam Physical Exam: PHYSICAL EXAMINATION Last 24h vital signs reviewed, see documentation in flowsheet General: sitting up in chair getting hickman shaved HEENT: moist mucus membranes Lungs: normal work of breathing. Heart: deferred Abdomen: ND Extremities: Warm, dry, well-perfused. No extremity edema. Neuro: alert, oriented to self, pleasantly confused Psych: Normal affect and behavior Results & Data Results & Data Vital Signs (Past 12 Hours) Vital Signs Temp Pulse Resp BP Pulse Ox O2 Del Method 02/25/24 15:19 97.5 F L 71 16 126/71 97 Room Air 02/25/24 07:27 97.3 F L 58 L 16 135/77 94 Room Air PG Care Time/CCT Total # of Minutes Spent Total Time Spent with Patient: Total time spent is greater than 50% in coordination of care (as documented) at patient's floor/unit and/or counseling patient: Coding Level of Care Code 91521 SUB INP/OBS CARE 1/25MIN Diagnoses COVID-19 U07.1 Dementia F03.90 Hypertension I10 Pre-diabetes R73.03 CKD (chronic kidney disease) stage 3, GFR 30-59 ml/min N18.30 Subclinical hypothyroidism E03.8
[2024-02-26 07:40] VITALS: RESP 16
[2024-02-26 12:13] LABS: BUN Creatinine Ratio 25.8 (10-20); Calcium 10.4 mg/dl (8.6-10.3); Creatinine Clr Calc Pharmacy 29.7 ml/min; Magnesium 2.1 mg/dl (1.7-2.4); Potassium 4.8 mmol/L (3.5-5.1)
--- NOTE | 2024-02-26 12:13 | Hospitalist Progress Note ---
Date of Service February 26, 2024 Assessment & Plan (1) COVID-19: Plan: dx with such day of admission on 02/13/24 s/p 5 day course of Remdesivir steroids deferred has made complete recovery from COVID out of airborne precautions (2) Dementia: Plan: mod-severe cont aricept cont namenda (3) Hypertension: Plan: amlodipine stopped remains on lisinopril but dose has been cut from 40mg/day to 10mg/day BPs reasonable at this time (4) Pre-diabetes: Plan: a1c 6.2% controlled w/o agents (5) CKD (chronic kidney disease) stage 3, GFR 30-59 ml/min: Plan: baseline CrCl low 30s c/w stage 3b disease creatinine today slightly higher than previous hydrate with IVF then repeat BMP am (6) Subclinical hypothyroidism: Plan: TSH 6.5 this admission FT4 0.7 - borderline low plan repeat TFTs in 4-6 weeks as outpatient if values remain similar would start replacement therapy (7) Hypercalcemia: Plan: very mild plan IV fluids, repeat BMP am check phos, 25-OH vit D, and intact PTH level in am tomorrow r/o hyperparathyroidism (8) Back pain: Plan: 2nd to fall experienced on the evening of 02/19 into 02/20 x-rays of right ribs neg for fracture still with lumbar spine pain obtain CT lumbar spine r/o fracture lidoderm tylenol TID Plan DVT prophylaxis: Heparin subcutaneous twice daily Dispo - SNF / memory unit - tomorrow will likely be his discharge Left message for pt's daughter Monica this evening, 02/25 Admission and Anticipated Discharge Date Admission Date: February 13, 2024 Subjective upset that "no one is visiting him" reports pain in low back and the right flank/costal margin area denies pain in his arms/legs confused during the visit but no agitation Review of Systems Review of Systems: CV - no chest pain pulm - no dyspnea GI - no abd pain Physical Exam Physical Exam: gen - sitting in chair comfortably, NAD, pleasantly confused neck - no JVD mouth - MMM heart - RRR, s1 s2, no murmur lungs - CTA b/l back - tender l-spine region to palpation as well as the right flank region abd - soft NT ND BS+ ext - pulses b/l feet 2+; no edema Results & Data Results & Data Vital Signs (Past 12 Hours) Vital Signs Temp Pulse Resp BP Pulse Ox O2 Del Method 02/26/24 07:39 36.8 C 60 16 158/77 H 97 Room Air Laboratory Results Laboratory Results - last 24 hr 02/26/24 11:03 Sodium 139 Potassium 4.8 Chloride 106 Carbon Dioxide 28 Anion Gap 5 BUN 40 H Creatinine 1.55 H Est Cr Clr Drug Dosing 29.7 eGFR 43.86 BUN/Creatinine Ratio 25.8 H Glucose 142 H Calcium 10.4 H Phosphorus 2.5 Magnesium 2.1 PG Care Time/CCT Total # of Minutes Spent Total Time Spent with Patient: Total time spent is greater than 50% in coordination of care (as documented) at patient's floor/unit and/or counseling patient: Coding Level of Care Code 48978 SUB INP/OBS CARE 3/50MIN Diagnoses COVID-19 U07.1 Dementia F03.90 Hypertension I10 Pre-diabetes R73.03 CKD (chronic kidney disease) stage 3, GFR 30-59 ml/min N18.30 Subclinical hypothyroidism E03.8 Hypercalcemia E83.52 Back pain M54.9
[2024-02-26] MEDS: LIDOCAINE 5% 1 PATCH TD SCH (12:54)
[2024-02-26] MEDS: ACETAMINOPHEN 500 MG TAB PO SCH (14:42)
--- NOTE | 2024-02-26 14:58 | CT Scan Report ---
CT lumbar spine wo con CLINICAL HISTORY: recent fall, l-spine pain, R flank pain COMPARISON STUDY: CT of the abdomen February 03, 2019. TECHNIQUE: Axial images of the lumbar spine were obtained without IV contrast. Sagittal and coronal r eformats were viewed. Automated exposure control was utilized for the study. A dose lowering techniq ue was utilized adhering to the principles of ALARA. FINDINGS: For purposes of numbering on this exam, the L5-S1 disc space is assigned to axial image 317 of 384. Alignment of the lumbar spine is anatomic. There are no lumbar spine fractures. There are no osseous lesions. Facet joints are intact. Disc spaces are preserved. Mild multilevel endplate osteop hytosis is present. Central canal and neural foramen are suboptimally assessed given CT technique. Ho wever, there is no evidence for severe central canal or neural foraminal stenosis. There is moderate facet arthrosis within lumbar spine. Several calcified pleural plaques within the visualized right chas ng base are unchanged since prior CT. These are benign. A 2.5 cm low-attenuation right adrenal nodule is unchanged as well. This represents an adenoma. IMPRESSION: 1. No lumbar spine fractures. 2. Mild degenerative disc disease and moderate facet arthrosis within the lumbar spine. Suboptimal ev aluation of the central canal and neural foramen given CT technique. ACT 112: Negative or not required by law. Electronically signed by: Dann Cruz M.D. 02/26/2024 2:57 PM
[2024-02-26] MEDS: SODIUM CHLORIDE 0.9% 500 ML IV SCH (16:51)
[2024-02-26 20:53] LABS: Phosphorus 2.5 mg/dl (2.5-4.9)
[2024-02-27 05:24] LABS: BUN Creatinine Ratio 22.8 (10-20); Calcium 9.7 mg/dl (8.6-10.3); Creatinine Clr Calc Pharmacy 31.8 ml/min; Potassium 4.9 mmol/L (3.5-5.1)
[2024-02-27 07:59] VITALS: BP 182/68; PULSE 68; TEMP 97.7; O2SAT 96
[2024-02-27] MEDS: SODIUM ZIRCONIUM CYCLOSILICATE 10 GM PACKET PO ONE (09:57)
--- NOTE | 2024-02-27 12:34 | Discharge Summary ---
Discharge Summary Date of Service February 27, 2024 Principal Dx & Hospital Course #1 = Principal Diagnosis (1) COVID-19: dx with such day of admission on 02/13/24 s/p 5 day course of Remdesivir steroids deferred has made complete recovery from COVID out of airborne precautions (2) Dementia: mod-severe cont aricept cont namenda (3) Hypertension: amlodipine stopped remains on lisinopril but dose has been cut from 40mg/day to 10mg/day BPs reasonable at this time (4) Pre-diabetes: a1c 6.2% controlled w/o agents (5) CKD (chronic kidney disease) stage 3, GFR 30-59 ml/min: baseline CrCl low 30s c/w stage 3b disease creatinine today slightly higher than previous hydrate with IVF then repeat BMP am (6) Subclinical hypothyroidism: TSH 6.5 this admission FT4 0.7 - borderline low plan repeat TFTs in 4-6 weeks as outpatient if values remain similar would start replacement therapy (7) Hypercalcemia: very mild plan IV fluids, repeat BMP am check phos, 25-OH vit D, and intact PTH level in am tomorrow r/o hyperparathyroidism (8) Back pain: 2nd to fall experienced on the evening of 02/19 into 02/20 x-rays of right ribs neg for fracture still with lumbar spine pain obtain CT lumbar spine r/o fracture lidoderm tylenol TID Plan DVT prophylaxis: Heparin subcutaneous twice daily Dispo - SNF / memory unit - tomorrow will likely be his discharge Left message for pt's daughter Monica this evening, 02/25 Admission HPI Per Admitting Provider Patient is an 83-year-old male with past medical history of dementia, hyper tension, CKD, and prediabetes. He comes in today via EMS with his family who stated that he has been tired since yesterday. They could barely get him up to eat yesterday. He also is unable to walk/stand on his own. They had to lift him from his bed to his recliner. He normally ambulates without assistance at baseline. They deny recent falls. They also stated that he has a cough that has worsened Sunday, he has a chronic cough. He has had poor p.o. intake since yesterday morning. He also has a resting tremor that has recently worsened, has neurology follow-up 12/20. His daughter stated that he also has had some urinary incontinence/using his depends during the daytime, he normally only uses these at night. His family is concerned about taking care of him at home with him being unable to ambulate, would like for PT/OT evals and anticipate placement. He has had physical therapy before, in August due to his neck pain. Patient unable to perform ROS given confusion and fatigue. Family denies rhinorrhea, sore throat, dyspnea, nausea, vomiting, diarrhea, constipation. Patient's , daughter, granddaughter updated at bedside. Discharge Exam gen - sitting in chair comfortably, NAD, pleasantly confused neck - no JVD mouth - MMM heart - RRR, s1 s2, no murmur lungs - CTA b/l back - tender l-spine region to palpation as well as the right flank region abd - soft NT ND BS+ ext - pulses b/l feet 2+; no edema Discharge Plan Discharge Items Patient Disposition: Transfer Jail Fac Reason For Visit: AMBULATORY DYSFUNCTION Discharge Diagnosis: 1. weakness due to COVID-19 infection - resolved 2. in-hospital fall with bruise to right ribs; imaging of lumbar spine & ribs negative for fracture 3. mild hypercalcemia - monitoring needed; discharge calcium was 9.7; normal intact PTH level 4. hypertension 5. dementia 6. chronic kidney disease stage 3 - discharge creatinine 1.45 7. history of prostate cancer 8. pre-diabetes; hba1c 6.2% 9. abnormal TSH - 6.5; repeat recommended 4-6 weeks 10. orthostasis Activity: Resume your previous activity Non-emergency contact: Primary Care Provider Call non-emergency contact if: you have any medication questions, your symptoms worsen and your pain is not controlled Follow-up/Referrals: Flynn Collier, [Primary Care Provider] - Diet: Regular Addtl Attending Provider Instructions: Mr Metz was hospitalized due to weakness from COVID-19 infection. He improved with Remdesivir & supportive care. Stay was complicated by a fall without injury, orthostasis, and need for SNF placement. Recommendations - 1. repeat BMP in 4-5 days to recheck stability of creatinine & calcium level 2. repeat TSH 4-6 weeks 3. check orthostatics daily for 3-4 days to ensure no dizziness and to ensure stable blood pressures 4. PT/OT - eval and treat It was our pleasure to care for Mr Metz! -Dr Burns Pending Studies at Discharge: No Stand-Alone Forms: My [facility] Skilled Items Patient informed of condition?: Yes DNR: Yes Discharge Level of Care: Skilled Communicable Disease: No Discharge Prognosis: Stable Lines: None Urinary Catheter: No Medications and DC Order Prescriptions: New melatonin 3 mg Tablet 3 mg PO HS Qty: 30 0RF acetaminophen [Tylenol Extra Strength] 500 mg Tablet 1,000 mg PO TID 10 Days Qty: 60 0RF lidocaine 5 % Adhesive Patch,Medicated 3 patch transdermal QAM Qty: 30 0RF Rx Instructions: apply to back/right ribs/etc for 12 hrs; remove for 12 hrs Continued multivitamin tablet 1 tab PO QAM cyanocobalamin (vitamin B-12) 2,500 mcg tablet 2,500 mcg PO Q OTHER DAY memantine 10 mg tablet 10 mg PO BID 90 Days Qty: 180 3RF Rx Instructions: Take 10 mg (1 tab) twice a day donepezil 10 mg tablet 10 mg PO PM paroxetine HCl 20 mg tablet 20 mg PO QAM Changed lisinopril 10 mg tablet 10 mg PO DAILY Qty: 30 0RF amlodipine 5 mg tablet 2.5 mg PO QAM Qty: 0 0RF Discontinued cholecalciferol (vitamin D3) 1,250 mcg (50,000 unit) tablet 50,000 unit PO .qweekly Qty: 14 4RF alprazolam [Xanax] 0.5 mg tablet 0.5 mg PO DAILY PRN (Reason: anxiety) Qty: 60 3RF Discharge Orders: Discharge Order (Routine); Ordered 02/27/24 Ordered By: Peña Burns Admission Data Admit Date/Time: 02/13/24 22:06 Attending Provider: Peña Burns Admit Provider: Al Barrera Primary Care Provider: Flynn Collier Other Providers: Al Barrera; [place]; [facility] [place]; [facility]; [facility]; [facility]; [place] Stay Data Consultations 02/13/24 13:10 ED Decision to Admit Stat Diagnostic Imagining Performed 02/26/24 12:11 CT lumbar spine wo con Routine Pending Results Patient Have Any Pending Studies at Discharge: No Discharge Instructions Given to Patient (Per Discharging Provider) Mr Metz was hospitalized due to weakness from COVID-19 infection. He improved with Remdesivir & supportive care. Stay was complicated by a fall without injury, orthostasis, and need for SNF placement. Recommendations - 1. repeat BMP in 4-5 days to recheck stability of creatinine & calcium level 2. repeat TSH 4-6 weeks 3. check orthostatics daily for 3-4 days to ensure no dizziness and to ensure stable blood pressures 4. PT/OT - eval and treat It was our pleasure to care for Mr Metz! -Dr Burns Coding Diagnoses COVID-19 U07.1 Dementia F03.90 Hypertension I10 Pre-diabetes R73.03 CKD (chronic kidney disease) stage 3, GFR 30-59 ml/min N18.30 Subclinical hypothyroidism E03.8 Hypercalcemia E83.52 Back pain M54.9
== END 2024-02-27 15:46 | DRG 178 ==
LOC: ED 09:23 → SUATTDRO 22:06 → EDINP 22:06 → 3N 22:10